=== PATIENT | male | born 1980 | race Caucasian/White ===

== ENCOUNTER 2018-06-23 07:47 | Emergency (ER) | payer OTHER ==
--- OUTSIDE RECORDS SUMMARY | 2018-06-23 07:50 | XMS REPORT | Clinical Summary ---
:1980 Author Organization [facility] Address [address] [place] [address] Care Team Providers Name Role Phone Bruno Kothari MD Primary Care Provider Allergies Not on File Medications Not on file Active Problems Not on file Social History Tobacco Use Types Packs/Day Years Used Date Never Assessed Sex Assigned at Date Recorded Not on file Job Start Date Occupation Industry Not on file Not on file Not on file Travel History Travel Start Travel End No recent travel history available. Last Filed Vital Signs Not on file Plan of Treatment Health Maintenance Due Date Last Done Comments INFLUENZA VACCINE 12/09/2017 Results Not on fileafter 06/22/2017 Insurance Payer Benefit Plan / Group Subscriber ID Type Phone Address [employer]ET[employer] AET[employer] PPO OPEN CHOICE xxxxxxxxxx PPO Advance Directives Patient has advance care planning documents on file. For more information, please contact:[address] [address]
--- OUTSIDE RECORDS SUMMARY | 2018-06-23 07:50 | XMS REPORT | Continuity of Care Document ---
:1980 Author Organization Interface Problems Problem Status Onset Date Classification Date Comments Source Reported Medications Medication Details Route Status Patient Ordering Order Source Instructions Provider Date Allergies, Adverse Reactions, Alerts Substance Category Reaction Severity Reaction Status Date Comments Source type Reported Immunizations Immunization Date Given Site Status Last Updated Comments Source Results Order Results Value Reference Date Interpretation Comments Source Name Range Vital Signs Vital Sign Value Date Comments Source Encounters Location Location Encounter Encounter Reason Attending ADM DC Status Source Details Type Number For Provider Date Date Visit Outpatient [id number] YUNIEL 12/11 Active [facility] Outpatient [id number] YUNIEL 01/15 [facility] Outpatient [id number] YUNIEL 04/16 [facility] Outpatient [id number] YUNIEL 04/28 Active [facility] Outpatient [id number] YUNIEL 06/15 [facility] Outpatient [id number] YUNIEL 07/13 [facility] Procedures Procedure Code Date Perfomer Comments Source
[2018-06-23] MEDS ORDERED: PROMETHAZINE 25 MG/ML VIAL ONE (08:39)
[2018-06-23] MEDS ORDERED: NA CHLORIDE 0.9% 1,000 ML ONE (08:39)
[2018-06-23] MEDS ORDERED: PANTOPRAZOLE 40 MG INJ ONE (08:39)
--- NOTE | 2018-06-23 08:44 | RAD REPORT ---
EXAM DESCRIPTION: CT - Head C Spine Mpr Wo Con - 06/23/2018 8:25 am CLINICAL HISTORY: Headache. Migraine. Neck pain. Nausea COMPARISON: None. TECHNIQUE: Computed axial tomography of the head and cervical spine was obtained. Sagittal and coronal reconstruction was performed. All CT scans are performed using dose optimization technique as appropriate and may include automated exposure control or mA/KV adjustment according to patient size. FINDINGS: An intracranial bleed is not seen. The ventricles are normal in caliber. An extra-axial fl uid collection is not noted.Fluid within the visualized sinuses and mastoids is not seen A cervical fracture is not visualized. No dislocation is noted. Spinal stenosis is not noted IMPRESSION: No acute intracranial abnormality is seen. A cervical fracture is not visualized. Spinal stenosis is not seen. If the patient continues to have symptoms to suggest intracranial /spinal cord pathology then MRI would be recommended
[2018-06-23 08:58] LABS: Potassium 3.1 mmol/L (3.5-5.1)
[2018-06-23 09:03] LABS: Absolute Lymphocytes (CBC) 5.2 K/uL (0.7-4.9); Absolute Monocytes 0.7 K/uL (0.1-1.3); Absolute Neutrophil 9.5 K/uL (1.8-8.0); Basophils % 0.5 % (0-1.3); Eosinophils % 1.6 % (0-4.4); Hematocrit 48.2 % (39.6-49.0); MPV 6.7 fL (7.6-11.3); Monocytes % 4.7 % (3.3-12.3)
[2018-06-23] MEDS ORDERED: FENTANYL CITR 100 MCG/2 ML ONE (09:17)
[2018-06-23] MEDS ORDERED: METHYLPRED NA SUC IV ONE (10:00)
[2018-06-23] MEDS ORDERED: NA CHLORIDE 0.9% IV ONE (10:00)
--- NOTE | 2018-06-23 13:55 | EDPHYS ---
Physician Documentation [facility] Name: Alex Ferrer Age: 37 yrs Sex: Male : 1980 Arrival Date: 06/23/2018 Time: 07:50 Bed 19 Private MD: CHANTE GUARDADO ED Physician Brendan Cheung HPI: 06/23 08:31 This 37 yrs old Male presents to ER via Ambulatory with complaints of snw Migraine. 08:31 The patient complains of pain to the right baptist. The patient describes the headache snw as constant, unrelenting. Onset: The symptoms/episode began/occurred gradually, 3 week(s) ago, and became persistent. Associated signs and symptoms: Pertinent positives: nausea, Photophobia. Severity of symptoms: At its worst the pain was moderate. Headache History: The patient has had previous headaches and this one is similar to previous episodes. The symptoms are alleviated by nothing. The patient has experienced similar episodes in the past, chronically. saw Dr. Hernandes last week. Burst of steroids added to pt's triptan. No relief. Pt states he has hx of migraine. They used to last x 3 weeks until he started taking triptan medication and the headache was shortened to 2-3 days. This episode, pt continues with pain to right baptist.. Historical: - Allergies: 08:22 No Known Allergies; hb - Home Meds: 08:22 Relpax oral oral [Active]; hb - PMHx: 08:22 Migraines; hb - PSHx: 08:22 None; hb - Immunization history:: Adult Immunizations up to date. - Social history:: Smoking status: Patient/guardian denies using tobacco. - Ebola Screening: : No symptoms or risks identified at this time. ROS: 08:30 Constitutional: Negative for fever, chills, and weight loss, Eyes: Negative for injury, snw pain, redness, and discharge, ENT: Negative for injury, pain, and discharge, Neck: Negative for injury, pain, and swelling, Cardiovascular: Negative for chest pain, palpitations, and edema, Respiratory: Negative for shortness of breath, cough, wheezing, and pleuritic chest pain, Abdomen/GI: Negative for abdominal pain, nausea, vomiting, diarrhea, and constipation, Back: Negative for injury and pain, : Negative for injury, bleeding, discharge, and swelling, MS/Extremity: Negative for injury and deformity, Skin: Negative for injury, rash, and discoloration. 08:30 Neuro: Positive for headache, of the right baptist. Exam: 08:30 Constitutional: This is a well developed, well nourished patient who is awake, alert, snw and in no acute distress. Head/Face: Normocephalic, atraumatic. Eyes: Pupils equal round and reactive to light, extra-ocular motions intact. Lids and lashes normal. Conjunctiva and sclera are non-icteric and not injected. Cornea within normal limits. Periorbital areas with no swelling, redness, or edema. ENT: Nares patent. No nasal discharge, no septal abnormalities noted. Tympanic membranes are normal and external auditory canals are clear. Oropharynx with no redness, swelling, or masses, exudates, or evidence of obstruction, uvula midline. Mucous membranes moist. Neck: Trachea midline, no thyromegaly or masses palpated, and no cervical lymphadenopathy. Supple, full range of motion without nuchal rigidity, or vertebral point tenderness. No Meningismus. Chest/axilla: Normal chest wall appearance and motion. Nontender with no deformity. No lesions are appreciated. Cardiovascular: Regular rate and rhythm with a normal S1 and S2. No gallops, murmurs, or rubs. Normal PMI, no JVD. No pulse deficits. Respiratory: Lungs have equal breath sounds bilaterally, clear to auscultation and percussion. No rales, rhonchi or wheezes noted. No increased work of breathing, no retractions or nasal flaring. Abdomen/GI: Soft, non-tender, with normal bowel sounds. No distension or tympany. No guarding or rebound. No evidence of tenderness throughout. Back: No spinal tenderness. No costovertebral tenderness. Full range of motion. Skin: Warm, dry with normal turgor. Normal color with no rashes, no lesions, and no evidence of cellulitis. MS/ Extremity: Pulses equal, no cyanosis. Neurovascular intact. Full, normal range of motion. Neuro: Awake and alert, GCS 15, oriented to person, place, time, and situation. Cranial nerves II-XII grossly intact. Motor strength 5/5 in all extremities. Sensory grossly intact. Cerebellar exam normal. Normal gait. Psych: Awake, alert, with orientation to person, place and time. Behavior, mood, and affect are within normal limits. Vital Signs: 08:11 BP 143 / 104; Pulse 74; Resp 16; Temp 97.8; Pulse Ox 100% on R/A; Pain 10/10; hb 11:05 BP 115 / 83; Pulse 73; Resp 18; Pulse Ox 95% on R/A; aj1 13:09 BP 113 / 81; Pulse 78; Resp 18; Pulse Ox 95% on R/A; aj1 14:54 BP 101 / 56; Pulse 68; Resp 18; Pulse Ox 96% on R/A; aj1 [place] Coma Score: 13:05 Eye Response: spontaneous(4). Verbal Response: oriented(5). Motor Response: obeys snw commands(6). Total: 15. MDM: 08:10 Patient medically screened. snw 13:05 Data reviewed: vital signs, nurses notes. Data interpreted: Pulse oximetry: on room air snw is 95 %. Interpretation: normal. Counseling: I had a detailed discussion with the patient and/or guardian regarding: the historical points, exam findings, and any diagnostic results supporting the discharge/admit diagnosis, the presence of at least one elevated blood pressure reading (>120/80) during this emergency department visit, lab results, radiology results, the need for outpatient follow up. Response to treatment: the patient's symptoms have markedly improved after treatment, patient is well hydrated. Awaiting: IVF with solu-medrol to fininsh infusing. Special discussion: I have referred the patient to see his PCP for further evaluation of high blood pressure. Based on the history and exam findings, there is no indication for further emergent testing or inpatient evaluation. I discussed with the patient/guardian the need to see the neurologist for further evaluation of the symptoms. I discussed with the patient/guardian the need to see the primary care provider for further evaluation of the symptoms. ED course: sleeping in NAD. 06/23 08:13 Order name: CBC with Diff; Complete Time: 09:13 snw 06/23 08:13 Order name: Chem 7; Complete Time: 09:13 snw 06/23 08:13 Order name: CT Head C Spine; Complete Time: 08:47 snw 06/23 08:13 Order name: Blood Culture* snw 06/23 08:13 Order name: Oxygen: NRB at 15l/min x 10-15 min; Complete Time: 08:44 snw 06/23 08:53 Order name: Misc. Order: Solu-medrol 1gm/1L 0.9NS to run over 1-2 hours; Complete Time: snw 09:59 Administered Medications: 08:43 Drug: NS 0.9% 1000 ml Route: IV; Rate: 1 bolus; Site: right antecubital; hb 09:30 Follow up: Response: No adverse reaction; IV Status: Completed infusion hb 08:43 Drug: Phenergan 12.5 mg Route: IVP; Site: right antecubital; hb 09:16 Follow up: Response: No adverse reaction hb 08:43 Drug: ProTONIX 40 mg Route: IVP; Site: right antecubital; hb 09:16 Follow up: Response: No adverse reaction hb 09:04 Drug: fentaNYL (PF) 25 mcg Route: IVP; Site: right antecubital; hb 09:59 Follow up: Response: No adverse reaction; Pain is decreased hb 14:53 Drug: Potassium Effervescent Tablet 50 mEq Route: PO; aj1 14:53 Follow up: Response: No adverse reaction aj1 Disposition: 18:55 Co-signature as Attending Physician, Brendan Cheung MD. rn Disposition: 06/23/18 13:54 Discharged to Home. Impression: Migraine, Hypokalemia. - Condition is Stable. - Discharge Instructions: Potassium Content of Foods, Migraine Headache, Hypokalemia. - Prescriptions for Diclofenac Sodium 75 mg Oral Tablet Sustained Release - take 1 tablet by ORAL route 2 times per day; 30 tablet. orphenadrine citrate 100 mg Oral Tablet Sustained Release - take 1 tablet by ORAL route 2 times per day As needed; 20 tablet. - Work release form, Medication Reconciliation Form, Thank You Letter, Antibiotic Education, Prescription Opioid Use form. - Follow up: Girma Hernandes; When: 1 - 2 days; Reason: Recheck today's complaints, Continuance of care, Re-evaluation by your physician. Signatures: Dispatcher [employer] EDMS Yuliya Enriquez RN RN aj1 Karena Degroot, ICE PLANT OPERATOR-C ICE PLANT OPERATOR-Csnw Brendan Cheung MD MD rn Baxter, Heather, RN RN Corrections: (The following items were deleted from the chart) 14:34 13:54 06/23/2018 13:54 Discharged to Home. Impression: Migraine. Condition is Stable. snw Discharge Instructions: Migraine Headache. Prescriptions for Diclofenac Sodium 75 mg Oral Tablet Sustained Release - take 1 tablet by ORAL route 2 times per day; 30 tablet, orphenadrine citrate 100 mg Oral Tablet Sustained Release - take 1 tablet by ORAL route 2 times per day As needed; 20 tablet. and Forms are Work release form, Medication Reconciliation Form, Thank You Letter, Antibiotic Education, Prescription Opioid Use. Follow up: Girma Hernandes; When: 1 - 2 days; Reason: Recheck today's complaints, Continuance of care, Re-evaluation by your physician. snw 15:01 14:34 06/23/2018 13:54 Discharged to Home. Impression: Migraine; Hypokalemia. Condition aj1 is Stable. Discharge Instructions: Migraine Headache. Prescriptions for Diclofenac Sodium 75 mg Oral Tablet Sustained Release - take 1 tablet by ORAL route 2 times per day; 30 tablet, orphenadrine citrate 100 mg Oral Tablet Sustained Release - take 1 tablet by ORAL route 2 times per day As needed; 20 tablet. and Forms are Work release form, Medication Reconciliation Form, Thank You Letter, Antibiotic Education, Prescription Opioid Use. Follow up: Girma Hernandes; When: 1 - 2 days; Reason: Recheck today's complaints, Continuance of care, Re-evaluation by your physician. snw
--- NOTE | 2018-06-23 13:55 | ER ---
Nurse's Notes [facility] Name: Alex Ferrer Age: 37 yrs Sex: Male : 1980 Arrival Date: 06/23/2018 Time: 07:50 Bed 19 Private MD: CHANTE GUARDADO Diagnosis: Migraine;Hypokalemia Presentation: 06/23 08:11 Presenting complaint: Migraine x 3 weeks. + photosensitivity, + nausea. Hx of hb migraines. Transition of care: patient was not received from another setting of care. Onset of symptoms is unknown. Risk Assessment: Do you want to hurt yourself or someone else? Patient reports no desire to harm self or others. Initial Sepsis Screen: Does the patient meet any 2 criteria? No. Patient's initial sepsis screen is negative. Does the patient have a suspected source of infection? No. Patient's initial sepsis screen is negative. Care prior to arrival: None. 08:11 Method Of Arrival: Ambulatory hb 08:11 Acuity: JULI 3 hb Historical: - Allergies: 08:22 No Known Allergies; hb - Home Meds: 08:22 Relpax oral oral [Active]; hb - PMHx: 08:22 Migraines; hb - PSHx: 08:22 None; hb - Immunization history:: Adult Immunizations up to date. - Social history:: Smoking status: Patient/guardian denies using tobacco. - Ebola Screening: : No symptoms or risks identified at this time. Screenin:44 Abuse screen: Denies threats or abuse. Denies injuries from another. Nutritional hb screening: No deficits noted. Tuberculosis screening: No symptoms or risk factors identified. Fall Risk None identified. Assessment: 08:20 General: Appears in no apparent distress. uncomfortable, Behavior is calm, cooperative. hb Pain: Pain currently is 8 out of 10 on a pain scale. Neuro: Level of Consciousness is awake, alert, obeys commands, Oriented to person, place, time, situation. Cardiovascular: Heart tones S1 S2 present Capillary refill < 3 seconds Patient's skin is warm and dry. Respiratory: Airway is patent Trachea midline Respiratory effort is even, unlabored, Respiratory pattern is regular, symmetrical, Breath sounds are clear bilaterally. GI: Reports nausea. : No signs and/or symptoms were reported regarding the genitourinary system. EENT: No signs and/or symptoms were reported regarding the EENT system. Derm: Skin is intact, is healthy with good turgor, Skin is pink, warm \T\ dry. Musculoskeletal: No signs and/or symptoms reported regarding the musculoskeletal system. 09:00 Reassessment: Patient appears in no apparent distress at this time. Patient and/or hb family updated on plan of care and expected duration. Pain level reassessed. Patient is alert, oriented x 3, equal unlabored respirations, skin warm/dry/pink. 10:00 Reassessment: Patient and/or family updated on plan of care and expected duration. Pain aj1 level reassessed. General: Appears in no apparent distress. uncomfortable, Behavior is calm, cooperative, appropriate for age. Neuro: Level of Consciousness is awake, alert, obeys commands. Cardiovascular: Patient's skin is warm and dry. Respiratory: Airway is patent Respiratory effort is even, unlabored, Respiratory pattern is regular, symmetrical. Derm: Skin is pink, warm \T\ dry. normal. Musculoskeletal: No signs and/or symptoms reported regarding the musculoskeletal system. Circulation, motion, and sensation intact. 11:10 Reassessment: Patient appears in no apparent distress at this time. No changes from aj1 previously documented assessment. Patient and/or family updated on plan of care and expected duration. Pain level reassessed. Patient is alert, oriented x 3, equal unlabored respirations, skin warm/dry/pink. 12:20 Reassessment: Patient appears in no apparent distress at this time. No changes from aj1 previously documented assessment. Patient and/or family updated on plan of care and expected duration. Pain level reassessed. Patient is alert, oriented x 3, equal unlabored respirations, skin warm/dry/pink. 13:40 Reassessment: Patient appears in no apparent distress at this time. Patient and/or aj1 family updated on plan of care and expected duration. Pain level reassessed. Patient is alert, oriented x 3, equal unlabored respirations, skin warm/dry/pink. Patient states that his pain remains unchanged. 14:53 Reassessment: Patient appears in no apparent distress at this time. No changes from aj1 previously documented assessment. Patient and/or family updated on plan of care and expected duration. Pain level reassessed. Patient is alert, oriented x 3, equal unlabored respirations, skin warm/dry/pink. Vital Signs: 08:11 BP 143 / 104; Pulse 74; Resp 16; Temp 97.8; Pulse Ox 100% on R/A; Pain 10/10; hb 11:05 BP 115 / 83; Pulse 73; Resp 18; Pulse Ox 95% on R/A; aj1 13:09 BP 113 / 81; Pulse 78; Resp 18; Pulse Ox 95% on R/A; aj1 14:54 BP 101 / 56; Pulse 68; Resp 18; Pulse Ox 96% on R/A; aj1 [place] Coma Score: 13:05 Eye Response: spontaneous(4). Verbal Response: oriented(5). Motor Response: obeys snw commands(6). Total: 15. ED Course: 07:50 Patient arrived in ED. sb2 07:50 CHANTE GUARDADO is Private Physician. sb2 07:59 aKrena Degroot FNP-C is [facility]. snw 07:59 Brendan Cheung MD is Attending Physician. snw 08:11 Shanta Hearn, LASHA is Primary Nurse. hb 08:12 Triage completed. hb 08:12 Arm band placed on. hb 08:20 Patient has correct armband on for positive identification. Bed in low position. Call hb light in reach. Side rails up X 1. 08:27 CT Head C Spine In Process Unspecified. EDMS 08:30 Inserted saline lock: 20 gauge in right antecubital area, using aseptic technique. hb Blood collected. 13:54 Girma Hernandes MD is Referral Physician. snw 14:54 No provider procedures requiring assistance completed. IV discontinued, intact, aj1 bleeding controlled, No redness/swelling at site. Pressure dressing applied. Administered Medications: 08:43 Drug: NS 0.9% 1000 ml Route: IV; Rate: 1 bolus; Site: right antecubital; hb 09:30 Follow up: Response: No adverse reaction; IV Status: Completed infusion hb 08:43 Drug: Phenergan 12.5 mg Route: IVP; Site: right antecubital; hb 09:16 Follow up: Response: No adverse reaction hb 08:43 Drug: ProTONIX 40 mg Route: IVP; Site: right antecubital; hb 09:16 Follow up: Response: No adverse reaction hb 09:04 Drug: fentaNYL (PF) 25 mcg Route: IVP; Site: right antecubital; hb 09:59 Follow up: Response: No adverse reaction; Pain is decreased hb 14:53 Drug: Potassium Effervescent Tablet 50 mEq Route: PO; aj1 14:53 Follow up: Response: No adverse reaction aj1 Outcome: 13:54 Discharge ordered by MD. cancino 14:54 Discharged to home ambulatory, with family. aj1 14:54 Condition: good 14:54 Discharge instructions given to patient, family, Instructed on discharge instructions, follow up and referral plans. medication usage, Demonstrated understanding of instructions, follow-up care, medications, Prescriptions given X 2. 15:01 Patient left the ED. aj1 Signatures: Dispatcher [employer] EDYuliya Orozco RN RN aj1 Karena Degroot, ACCELERATOR TECHNICIAN-C ACCELERATOR TECHNICIAN-Alvarow Shanta Hearn RN RN Minerva Owens sb2
[2018-06-23] MEDS ORDERED: POTASSIUM 25 MEQ EFFERV TAB ONE (14:49)
== END 2018-06-23 15:01 | disposition home or self-care (01) ==
LOC: ER 07:47
DX: G43.909 Migraine, unspecified, not intractable, without status migrainosus (principal); E87.6 Hypokalemia
CPT/HCPCS: 36415; 70450; 72125; 80048; 85025; 87040; 96361; 96374; 96375; 99284; C9113; J2550; J2930; J3010; J7030

== ENCOUNTER 2018-11-19 00:53 | Emergency (ER) | payer BC, OTHER ==
--- OUTSIDE RECORDS SUMMARY | 2018-11-19 00:54 | XMS REPORT | Clinical Summary ---
:1980 Author Organization [facility] Address [address] [place] [address] Care Team Providers Name Role Phone Bruno [...] Due Date Last Done Comments INFLUENZA VACCINE 12/09/2018 Results Not on fileafter 11/18/2017 Advance Directives Patient has advance care planning documents on file. For more information, please contact:[address] [address]
--- OUTSIDE RECORDS SUMMARY | 2018-11-19 00:55 | XMS REPORT | Summary of Care ---
:1980 Author Organization [facility] Address [address] [place] [address]- Encounter [facility] Irma(JOHANA) [id number] Date(s): 04/16/18 - 04/16/18 [facility] [address] [place] [address]- [phone] Discharge Disposition: Home or Self Care Attending Physician: Girma Hernandes MD Referring Physician: Girma Hernandes MD Vital Signs Most recent to oldest [Reference Range]: 1 Height 175.26 cm (04/16/18 3:35 PM) Blood Pressure [90-140/60-90 mmHg] 117/86 mmHg (04/16/18 3:35 PM) Peripheral Pulse Rate [60-100 bpm] 109 bpm *HI* (04/16/18 3:35 PM) Weight 78.636 kg (04/16/18 3:35 PM) Body Mass Index 25.6 m2 (04/16/18 3:35 PM) Problem List Condition Effective Dates Status Health Status Informant Migraines(Confirmed) Active Pain(Confirmed)1 Resolved Paresthesias(Confirmed) Active Tinnitus(Confirmed) Active 1constant pain in various areas Allergies, Adverse Reactions, Alerts No Known Medication Allergies Medications Medrol Dosepak 4 mg oral tablet See Instructions, PO, Take by mouth as directed on label., # 1 Pack, 0 Refill(s) , Pharmacy: [id number] Start Date: 04/16/18 Stop Date: 04/28/18 Status: DiscontinuedTrokendi XR 100 mg oral capsule, extended release 100 mg=1 cap, PO, Daily, # 30 cap, 3 Refill(s), Pharmacy: [id number] Start Date: 04/16/18 Stop Date: 08/14/18 Status: Ordered Results Most recent to oldest [Reference Range]: 1 eGFR NON-AFR. TRINIDADIAN [> OR=60 mL/min/1.73m2] 88 mL/min/1.73m2 *N* (05/08/18 8:39 AM) eGFR [> OR=60 mL/min/1.73m2] 102 mL/min/1.73m2 *N* (05/08/18 8:39 AM) A/G Ratio [1.0-2.5 (CALC)] 1.6 (CALC) *N* (05/08/18 8:39 AM) Albumin Lvl [3.6-5.1 g/dL] 4.4 g/dL *N* (05/08/18 8:39 AM) Alk Phos [40-115 unit/L] 75 unit/L *N* (05/08/18 8:39 AM) ALT [9-46 unit/L] 23 unit/L 1 *N* (05/08/18 8:39 AM) AST [10-40 unit/L] 11 unit/L *N* (05/08/18 8:39 AM) B/C Ratio [6-22] NOT APPLICABLE (05/08/18 8:39 AM) BUN [7-25 mg/dL] 25 mg/dL *N* (05/08/18 8:39 AM) Calcium Lvl [8.6-10.3 mg/dL] 9.3 mg/dL *N* (05/08/18 8:39 AM) Chloride Lvl [98-110 mMol/L] 104 mMol/L *N* (05/08/18 8:39 AM) CO2 [20-32 mMol/L] 25 mMol/L *N* (05/08/18 8:39 AM) Creatinine Lvl [0.60-1.35 mg/dL] 1.07 mg/dL *N* (05/08/18 8:39 AM) Globulin [1.9-3.7 g/dL] 2.7 g/dL *N* (05/08/18 8:39 AM) Glucose Lvl [65-99 mg/dL] 109 mg/dL 2 *HI* (12/29/18 8:39 AM) Potassium Lvl [3.5-5.3 mMol/L] 4.1 mMol/L *N* (05/08/18 8:39 AM) Sodium Lvl [135-146 mMol/L] 138 mMol/L *N* (05/08/18 8:39 AM) Total Protein [6.1-8.1 g/dL] 7.1 g/dL *N* (05/08/18 8:39 AM) Bili Total [0.2-1.2 mg/dL] 0.3 mg/dL *N* (05/08/18 8:39 AM) 1Result Comment: FASTING:YES FASTING: [id number] Comment: Fasting reference interval For someone without known diabetes, a glucose value between 100 and 125 mg/dL is consistent with prediabetes and should be confirmed with a follow-up test. Lab [facility] performed by: [facility] [address] [place] [address] Deborah Ramos Immunizations No data available for this section Procedures No data available for this section Social History Social History Type Response Employment/School Status: Employed. Alcohol Current, Frequency: 1-2 times per week. Smoking Status Current some day smoker; Type: Cigars; Exposure to Tobacco Smoke Unable to obtain; Cigarette Smoking Last 365 Days No; Reg Smoking Cessation Counseling No entered on: 06/15/18 Assessment and Plan No data available for this section
--- OUTSIDE RECORDS SUMMARY | 2018-11-19 00:55 | XMS REPORT | Continuity of Care Document ---
:1980 Author Organization [facility] Care Team Providers Name Role Phone [facility] Unavailable Unavailable Problems Problem Status Onset Classification Date Comments Source Date Reported Migraines Active Problem 11/16/2018 [facility] Pain1 Resolved Problem 11/16/2018 constant [facility] pain in Neuro various areas Paresthesias Active Problem 11/16/2018 [facility] Tinnitus Active Problem 11/16/2018 [facility] Medications Medication Details Route Status Patient Ordering Order Source Instructions Provider Date {21 See No Longer 04/16/20 [facility] (Methylpredni Instruction Active 18 Neuro solone 4 MG s, PO, Take Oral Tablet by mouth as [Medrol]) } directed on Pack [Medrol label., # 1 Dosepak] Pack, 0 Refill(s), Pharmacy: [id number] 24 HR 100 mg=1 Active 04/16/20 [facility] topiramate cap, PO, 18 Neuro 100 MG Daily, # 30 Extended cap, 3 Release Refill(s), Capsule Pharmacy: [Yee] [facility] #[id number] Allergies, Adverse Reactions, Alerts Substance Category Reaction Severity Reaction Status Date Comments Source type Reported No Known Assertion Drug [facility] Medication allergy Neuro Allergies Immunizations No Data Provided for This Section Results Order Results Value Reference Date Interpretation Comments Source Name Range CHEM Alk Phos 75 40 - 115 05/08 [facility] /2017 Neuro CHEM Albumin Lvl 4.4 3.6 - 5.1 05/08 [facility] CHEM Globulin 2.7 1.9 - 3.7 05/08 [facility] CHEM A/G Ratio 1.6 1.0 - 2.5 05/08 [facility] /2017 Neuro CHEM Bili Total 0.3 0.2 - 1.2 05/08 [facility] CHEM ALANINE 23 9 - 46 05/08 Result [facility] AMINOTRANSFERASE Comment: Neuro FASTING:YES

F ASTING: YES CHEM ASPARTATE 11 10 - 40 05/08 [facility] TRANSAMINASE /2017 Neuro CHEM Glucose Lvl 109 65 - 99 05/08 Result [facility] PANEL Comment: Neuro
Fasting reference interval

For someone without known diabetes, a glucose value
b etween 100 and 125 mg/dL is consistent with<br/&gt ;prediabete s and should be confirmed with a
follo w-up test.

Lab test performed by:
[facility]
[address]
[place] [address]< br/>Deborah Ramos CHEM BUN 25 7 - 25 05/08 [facility] PANEL Neuro CHEM eGFR 102 > OR=60 05/08 [facility] PANEL HUNGARIAN mL/min/1. Neuro 3m2 CHEM B/C Ratio NOT 6 - 22 05/08 [facility] PANEL APPLICABLE Neuro CHEM Creatinine Lvl 1.07 0.60 - 05/08 [facility] PANEL 1.35 Neuro CHEM eGFR NON-AFR. 88 > OR=60 05/08 [facility] PANEL HUNGARIAN mL/min/1. Neuro 3m2 CHEM Sodium Lvl 138 135 - 146 05/08 [facility] PANEL Neuro CHEM Chloride Lvl 104 98 - 110 05/08 [facility] PANEL Neuro CHEM CO2 25 20 - 32 05/08 [facility] PANEL Neuro CHEM Potassium Lvl 4.1 3.5 - 5.3 05/08 [facility] PANEL Neuro CHEM Calcium Lvl 9.3 8.6 - 10.3 05/08 [facility] PANEL /2017 Neuro CHEM Total Protein 7.1 6.1 - 8.1 05/08 [facility] PANEL Neuro Pathology Reports No Data Provided for This Section Diagnostic Reports No Data Provided for This Section Consultation Notes No Data Provided for This Section Discharge Summaries No Data Provided for This Section History and Physicals No Data Provided for This Section Vital Signs Vital Sign Value Date Comments Source BMI Calculated 27.97 04/28/2018 [facility] Neuro Weight 85.909 04/28/2018 [facility] Neuro Height 175.26 cm 04/28/2018 [facility] Neuro Heart Rate 89 04/28/2018 [facility] Neuro Systolic (mm Hg) 124 04/28/2018 [facility] Diastolic (mm Hg) 81 04/28/2018 [facility] BMI Calculated 25.6 04/16/2018 [facility] Weight 78.636 04/16/2018 [facility] Height 175.26 cm 04/16/2018 [facility] Heart Rate 109 04/16/2018 [facility] Systolic (mm Hg) 117 04/16/2018 [facility] Diastolic (mm Hg) 86 04/16/2018 [facility] Encounters Location Location Encounter Encounter Reason Attending ADM DC Status Source Details Type Number For Provider Date Date Visit Outpatient [id number] YUNIEL 12/11 Active [facility] [place] Outpatient [id number] YUNIEL 01/15 Active [facility] [place] Outpatient [id number] YUNIEL 04/16 [facility] [place] [facility] Outpatient [id number] Yuniel 04/16 04/17 [facility] Out[facility] [id number] YUNIEL 04/28 Active [facility] [place] [facility] Outpatient [id number] Yuniel 04/28 04/29 [facility] Outpatient [id number] YUNIEL 06/15 Active [facility] [place] Outpatient [id number] YUNIEL 07/13 Active [facility] [place] Procedures No Data Provided for This Section Assessment and Plan No Data Provided for This Section Plan of Care No Data Provided for This Section Social History Social History Date Source Social History TypeResponse 12/11/2017 [facility] Employment/School Status: Employed. Alcohol Current, Frequency: 1-2 times per week. Smoking Status Current some day smoker; Type: Cigars; Exposure to Tobacco Smoke Unable to obtain; Cigarette Smoking Last 365 Days No; Reg Smoking Cessation Counseling No entered on: 06/15/18 Family History No Data Provided for This Section Advance Directives No Data Provided for This Section Functional Status No Data Provided for This Section
--- OUTSIDE RECORDS SUMMARY | 2018-11-19 00:55 | XMS REPORT | Summary of Care ---
:1980 Author Organization [facility] Neurology [place] Address [address] [place] [address]- Encounter [facility] Irma(JOHANA) [id number] Date(s): 04/28/18 - 04/28/18 [facility] [address] [place] [address]- [phone] Discharge Disposition: Home or Self Care Attending Physician: Girma Hernandes MD Referring Physician: Girma Hernandes MD Vital Signs Most recent to oldest [Reference Range]: 1 Height 175.26 cm (04/28/18 4:05 PM) Blood Pressure [90-140/60-90 mmHg] 124/81 mmHg (04/28/18 4:05 PM) Peripheral Pulse Rate [60-100 bpm] 89 bpm (04/28/18 4:05 PM) Weight 85.909 kg (04/28/18 4:05 PM) Body Mass Index 27.97 m2 (04/28/18 4:05 PM) Problem List Condition Effective Dates Status Health Status Informant Migraines(Confirmed) Active Pain(Confirmed)1 Resolved Paresthesias(Confirmed) Active Tinnitus(Confirmed) Active 1constant pain in various areas Allergies, Adverse Reactions, Alerts No Known Medication Allergies Medications No Known Medications Results No data available for this section Immunizations No data available for this section [...]
[2018-11-19] MEDS ORDERED: NA CHLORIDE 0.9% 1,000 ML ONE (01:40)
[2018-11-19] MEDS ORDERED: KETOROLAC 30 MG/ML INJ ONE (01:41)
[2018-11-19 01:56] LABS: Absolute Lymphocytes (CBC) 2.1 K/uL (0.7-4.9); Basophils % 0.6 % (0-1.3); Hematocrit 43.2 % (39.6-49.0); Lymphocytes % 17.1 % (15.3-44.8); MPV 7.4 fL (7.6-11.3); Monocytes % 4.4 % (3.3-12.3); RBC Red Blood Cell Count 4.92 M/uL (4.33-5.43)
[2018-11-19 02:02] LABS: Potassium 3.8 mmol/L (3.5-5.1)
[2018-11-19 02:12] LABS: Urine Bacteria <20 /HPF (NONE SEEN); Urine Culture Reflex Order NOT NEEDED
[2018-11-19 02:14] LABS: Urine Blood NEGATIVE (NEG); Urine Glucose NEGATIVE (NEG); Urine Protein 2+ (NEG); Urine Specific Gravity >1.030 (1.005-1.030); Urine pH 5.5 (5.0-7.0)
[2018-11-19] MEDS ORDERED: FENTANYL CITR 100 MCG/2 ML ONE (03:09)
--- NOTE | 2018-11-19 03:20 | EDPHYS ---
Physician Documentation [facility] Name: Alex Ferrer Age: 38 yrs Sex: Male : 1980 Arrival Date: 11/19/2018 Time: 00:54 Bed 28 Private MD: ED Physician Rex Sena HPI: 11/19 01:20 This 38 yrs old Male presents to ER via Ambulatory with complaints of Side gs Pain. 01:27 The patient complains of pain in the left low back. The pain radiates to the groin, gs left femoral area and left iliac crest. Onset: The symptoms/episode began/occurred today. Modifying factors: The symptoms are alleviated by nothing. the symptoms are aggravated by nothing. Associated signs and symptoms: Pertinent positives: nausea, vomiting. Severity of pain: At its worst the pain was severe in the emergency department the pain is unchanged. The patient has experienced similar episodes in the past, a few times, and the symptoms today are exactly the same. The patient has not recently seen a physician. Historical: - Allergies: 01:06 No Known Allergies; bb - Home Meds: 01:06 Fluoxetine Oral [Active]; Ambien Oral [Active]; bb - PMHx: 01:06 Migraines; Kidney stones; insomnia; Depression; bb - PSHx: 01:06 Kidney stents; Shoulder surgery; Right hand; bb - Immunization history:: Adult Immunizations up to date. - Social history:: Smoking status: Patient uses tobacco products, denies chronic smoking, but will smoke occasionally, Patient uses alcohol, but reports only rare drinking. Patient/guardian denies using street drugs. - Ebola Screening: : No symptoms or risks identified at this time. ROS: 01:27 All other systems are negative. gs Exam: 01:27 Head/Face: Normocephalic, atraumatic. Eyes: Pupils equal round and reactive to light, gs extra-ocular motions intact. Lids and lashes normal. Conjunctiva and sclera are non-icteric and not injected. Cornea within normal limits. Periorbital areas with no swelling, redness, or edema. ENT: Nares patent. No nasal discharge, no septal abnormalities noted. Tympanic membranes are normal and external auditory canals are clear. Oropharynx with no redness, swelling, or masses, exudates, or evidence of obstruction, uvula midline. Mucous membranes moist. Neck: Trachea midline, no thyromegaly or masses palpated, and no cervical lymphadenopathy. Supple, full range of motion without nuchal rigidity, or vertebral point tenderness. No Meningismus. Chest/axilla: Normal chest wall appearance and motion. Nontender with no deformity. No lesions are appreciated. Cardiovascular: Regular rate and rhythm with a normal S1 and S2. No gallops, murmurs, or rubs. Normal PMI, no JVD. No pulse deficits. Respiratory: Lungs have equal breath sounds bilaterally, clear to auscultation and percussion. No rales, rhonchi or wheezes noted. No increased work of breathing, no retractions or nasal flaring. Skin: Warm, dry with normal turgor. Normal color with no rashes, no lesions, and no evidence of cellulitis. MS/ Extremity: Pulses equal, no cyanosis. Neurovascular intact. Full, normal range of motion. Neuro: Awake and alert, GCS 15, oriented to person, place, time, and situation. Cranial nerves II-XII grossly intact. Motor strength 5/5 in all extremities. Sensory grossly intact. Cerebellar exam normal. Normal gait. 01:27 Constitutional: The patient appears alert, awake, pale, uncomfortable. 01:27 Abdomen/GI: Palpation: mild abdominal tenderness, in the left lower quadrant. 01:27 Back: CVA tenderness, that is mild, is noted on the left. 01:27 : Male external genitalia: normal. Vital Signs: 01:06 BP 142 / 99; Pulse 102; Resp 16 S; Temp 98.2(O); Pulse Ox 95% on R/A; Weight 81.65 kg bb (R); Height 5 ft. 9 in. (175.26 cm) (R); Pain 9/10; 02:00 BP 130 / 87; Resp 16; Pulse Ox 96% ; Pain 9/10; fu 03:00 BP 129 / 92; Pulse 96; Resp 14; Pulse Ox 93% on R/A; Pain 9/10; fu 01:06 Body Mass Index 26.58 (81.65 kg, 175.26 cm) MDM: 01:14 Patient medically screened. 03:18 Differential diagnosis: nephrolithiasis, pyelonephritis, UTI. Data reviewed: vital gs signs, nurses notes, lab test result(s), radiologic studies. Counseling: I had a detailed discussion with the patient and/or guardian regarding: the historical points, exam findings, and any diagnostic results supporting the discharge/admit diagnosis, lab results, radiology results, the need for outpatient follow up, a urologist. Response to treatment: the patient's symptoms have markedly improved after treatment, the patient's condition has returned to base line. 11/19 01:21 Order name: Basic Metabolic Panel; Complete Time: 02:32 11/19 01:21 Order name: CBC with Diff; Complete Time: 02:32 11/19 01:21 Order name: Lipase; Complete Time: 02:32 11/19 01:21 Order name: CT Stone Protocol 11/19 01:21 Order name: Urine Microscopic Only; Complete Time: 02:32 11/19 01:50 Order name: Urine Dipstick--Ancillary (enter results); Complete Time: 02:32 ar5 11/19 01:21 Order name: IV Saline Lock; Complete Time: 01:41 gs 11/19 01:21 Order name: Labs collected and sent; Complete Time: 01:50 11/19 01:21 Order name: Urine Dipstick-Ancillary (obtain specimen); Complete Time: 01:51 gs Administered Medications: 01:41 Drug: NS 0.9% 1000 ml Route: IV; Rate: 1 bolus; Site: right antecubital; fu 02:29 Follow up: Response: No adverse reaction fu 01:41 Drug: TORadol - Ketorolac 15 mg Route: IVP; Site: right antecubital; fu 02:50 Follow up: Response: Pain is unchanged, physician notified fu 03:00 Drug: fentaNYL (PF) 75 mcg Route: IVP; Site: right antecubital; fu 03:25 Follow up: Response: Pain is decreased fu 03:25 Drug: [place] 10 mg-325 mg 1 tabs Route: PO; fu 03:50 Follow up: Response: No adverse reaction fu Disposition: 11/19/18 03:19 Discharged to Home. Impression: Hydronephrosis with renal and ureteral calculous obstruction. - Condition is Stable. - Discharge Instructions: Kidney Stones, Hydronephrosis. - Prescriptions for Tylenol- Codeine #4 300-60 mg Oral Tablet - take 1 tablet by ORAL route every 6 hours As needed; 12 tablet. - Medication Reconciliation Form, Thank You Letter, Antibiotic Education, Prescription Opioid Use form. - Follow up: Mariama Xavier MD; When: 1 - 2 days; Reason: Re-evaluation by your physician. Signatures: Dispatcher [employer] Elizabet Abraham RN RN Rex Mishra MD MD gs Umadhay, Felix, RN RN fu Corrections: (The following items were deleted from the chart) 03:55 03:19 11/19/2018 03:19 Discharged to Home. Impression: Hydronephrosis with renal and fu ureteral calculous obstruction. Condition is Stable. Forms are Medication Reconciliation Form, Thank You Letter, Antibiotic Education, Prescription Opioid Use. Follow up: Mariama Xavier; When: 1 - 2 days; Reason: Re-evaluation by your physician. gs
--- NOTE | 2018-11-19 03:20 | ER ---
Nurse's Notes [facility] Name: Alex Ferrer Age: 38 yrs Sex: Male : 1980 Arrival Date: 11/19/2018 Time: 00:54 Bed 28 Private MD: Diagnosis: Hydronephrosis with renal and ureteral calculous obstruction Presentation: 11/19 01:03 Presenting complaint: Patient states: he is having left flank pain since approx 2100 bb tonight the pain is sharp and constant, denies dysuria, pt has hx of kidney stones in the past. Transition of care: patient was not received from another setting of care. Onset of symptoms was November 18, 2018 at 21:00. Risk Assessment: Do you want to hurt yourself or someone else? Patient reports no desire to harm self or others. Initial Sepsis Screen: Does the patient meet any 2 criteria? No. Patient's initial sepsis screen is negative. Does the patient have a suspected source of infection? No. Patient's initial sepsis screen is negative. Care prior to arrival: None. 01:03 Method Of Arrival: Ambulatory bb 01:03 Acuity: JULI 3 bb Historical: - Allergies: 01:06 No Known Allergies; bb - Home Meds: 01:06 Fluoxetine Oral [Active]; Ambien Oral [Active]; bb - PMHx: 01:06 Migraines; Kidney stones; insomnia; Depression; bb - PSHx: 01:06 Kidney stents; Shoulder surgery; Right hand; bb - Immunization history:: Adult Immunizations up to date. - Social history:: Smoking status: Patient uses tobacco products, denies chronic smoking, but will smoke occasionally, Patient uses alcohol, but reports only rare drinking. Patient/guardian denies using street drugs. - Ebola Screening: : No symptoms or risks identified at this time. Screenin:15 Abuse screen: Denies threats or abuse. Nutritional screening: No deficits noted. fu Tuberculosis screening: No symptoms or risk factors identified. Fall Risk None identified. Assessment: 01:09 General: Appears uncomfortable, Behavior is calm, cooperative, appropriate for age, fu Denies fever, fatigue, chills. Pain: Complains of pain in left side pain Pain does not radiate. Pain currently is 9 out of 10 on a pain scale. Quality of pain is described as sharp, Pain began around 2100 last night. Is continuous. Neuro: Level of Consciousness is awake, alert, obeys commands, Oriented to person, place, time, situation, Pad Cutter are equal bilaterally Moves all extremities. Full function Gait is steady, Speech is normal, Facial symmetry appears normal. Cardiovascular: Denies chest pain, Capillary refill is > 3 seconds fingers toes. Respiratory: Airway is patent Breath sounds are clear bilaterally. Denies cough, shortness of breath. GI: Reports nausea, vomiting, Patient currently denies diarrhea. : Reports dark yellow urine Denies burning with urination. EENT:. Derm: No signs and/or symptoms reported regarding the dermatologic system. Musculoskeletal: No signs and/or symptoms reported regarding the musculoskeletal system. 02:00 Reassessment: Patient is alert, oriented x 3, equal unlabored respirations, skin fu warm/dry/pink. General: Appears comfortable, Behavior is calm, cooperative, appropriate for age. Pain: Complains of pain in left side Pain currently is 8 out of 10 on a pain scale. 03:00 Reassessment: Patient is alert, oriented x 3, equal unlabored respirations, skin fu warm/dry/pink. Pain: Complains of pain in left side Pain currently is 2 out of 10 on a pain scale. Vital Signs: 01:06 BP 142 / 99; Pulse 102; Resp 16 S; Temp 98.2(O); Pulse Ox 95% on R/A; Weight 81.65 kg bb (R); Height 5 ft. 9 in. (175.26 cm) (R); Pain 9/10; 02:00 BP 130 / 87; Resp 16; Pulse Ox 96% ; Pain 9/10; fu 03:00 BP 129 / 92; Pulse 96; Resp 14; Pulse Ox 93% on R/A; Pain 9/10; fu 01:06 Body Mass Index 26.58 (81.65 kg, 175.26 cm) bb ED Course: 00:54 Patient arrived in ED. ds1 00:59 Clayton Schuler, LASHA is Primary Nurse. fu 01:03 Rex Sena MD is Attending Physician. gs 01:04 Triage completed. bb 01:06 Arm band placed on Patient placed in an exam room, on a stretcher, on pulse oximetry. bb Family accompanied patient. 01:15 Patient has correct armband on for positive identification. Bed in low position. Call fu light in reach. Side rails up X 1. 01:16 ED physician to see patient. fu 01:46 Initial lab(s) drawn, by me, sent to lab. Inserted saline lock: 20 gauge in right fu antecubital area, using aseptic technique. 01:51 CT completed. Patient tolerated procedure well. Patient moved to CT via stretcher. Patient moved back from CT. 02:00 CT Stone Protocol In Process Unspecified. EDMS 03:10 No provider procedures requiring assistance completed. fu 03:19 Mariama Xavier MD is Referral Physician. gs 03:45 IV discontinued, intact, bleeding controlled, No redness/swelling at site. Pressure fu dressing applied. Administered Medications: 01:41 Drug: NS 0.9% 1000 ml Route: IV; Rate: 1 bolus; Site: right antecubital; fu 02:29 Follow up: Response: No adverse reaction fu 01:41 Drug: TORadol - Ketorolac 15 mg Route: IVP; Site: right antecubital; fu 02:50 Follow up: Response: Pain is unchanged, physician notified fu 03:00 Drug: fentaNYL (PF) 75 mcg Route: IVP; Site: right antecubital; fu 03:25 Follow up: Response: Pain is decreased fu 03:25 Drug: [place] 10 mg-325 mg 1 tabs Route: PO; fu 03:50 Follow up: Response: No adverse reaction fu Outcome: 03:19 Discharge ordered by . 03:45 Discharged to home ambulatory, with family. fu 03:45 Condition: improved 03:45 Discharge instructions given to patient, Instructed on discharge instructions, follow up and referral plans. Demonstrated understanding of instructions, medications, Prescriptions given X 1. 03:55 Patient left the ED. fu Signatures: Dispatcher [employer] Devin Curran Demi ds1 Elizabet Correa RN RN bb Starr, Gregory, MD MD Clayton Schuler RN RN fu
[2018-11-19] MEDS ORDERED: HYDROCODONE/APAP 10/325 TAB ONE (03:37)
--- NOTE | 2018-11-19 12:06 | RAD REPORT ---
EXAM DESCRIPTION: CT Abdomen and Pelvis Without Intravenous Contrast CLINICAL HISTORY: The patient is 38 years old and is Male; FLANK PAIN TECHNIQUE: Axial computed tomography images of the abdomen and pelvis without intravenous contrast. Sagittal and coronal reformatted images were created and reviewed. This CT exam was performed usi ng one or more of the following dose reduction techniques: automated exposure control, adjustment o f the mA and/or kV according to patient size, and/or use of iterative reconstruction technique. COMPARISON: CT abdomen and pelvis without contrast dated 05/14/2013. FINDINGS: LUNG BASES: Right lung base atelectasis. HEART: Visualized heart is within normal limits. ABDOMEN: LIVER: Diffuse hepatic steatosis. GALLBLADDER AND BILE DUCTS: Unremarkable. No calcified stones. No ductal dilation. PANCREAS: Unremarkable. No ductal dilation. SPLEEN: Unremarkable. No splenomegaly. ADRENALS: Unremarkable. No mass. KIDNEYS AND URETERS: 3 mm stone in the proximal left ureter with moderate hydronephrosis and proxi mal hydroureter. This is grossly unchanged from prior exam. Mild left perinephric stranding and enlar gement of the left kidney, worsened from prior exam. Additional stone is seen in the inferior pole of the left kidney measuring 7 x 3 mm, new from prior exam. STOMACH AND BOWEL: Unremarkable. No obstruction. No mucosal thickening. PELVIS: APPENDIX: The appendix is seen and is within normal limits. BLADDER: Bladder is decompressed. No stones. REPRODUCTIVE: Unremarkable as visualized. ABDOMEN and PELVIS: INTRAPERITONEAL SPACE: Unremarkable. No free air. No significant fluid collection. BONES/JOINTS: No acute fracture. No dislocation. SOFT TISSUES: Unremarkable. VASCULATURE: Unremarkable. No abdominal aortic aneurysm. LYMPH NODES: Unremarkable. No enlarged lymph nodes. IMPRESSION: 1. Obstructive 3 mm left proximal ureteral stone with moderate hydronephrosis/hydroure ter as well as asymmetric enlargement of the left kidney and perinephric stranding. Superimposed infe ctious process cannot be entirely excluded. Correlate with urinalysis. 2. Diffuse hepatic steatosis. Electronically signed by: Omi Quiñones DO 11/19/2018 2:13 AM CDT Due to temporary technical issues with the PACS/Fluency reporting system, reports are being signed by the in house radiologist as a courtesy to ensure prompt reporting. The interpreting radiologist is sarah lemaly responsible for the content of the report.
== END 2018-11-19 03:55 | disposition home or self-care (01) ==
LOC: ER 00:53
DX: N13.2 Hydronephrosis with renal and ureteral calculous obstruction (principal); G47.00 Insomnia, unspecified; F32.9 Major depressive disorder, single episode, unspecified
CPT/HCPCS: 36415; 74176; 76377; 80048; 81003; 81015; 83690; 85025; 96374; 96375; 99284; J3010; J7030

== ENCOUNTER 2019-03-16 12:00 | Emergency (ER) | payer BC ==
[2019-03-16] MEDS ORDERED: dexAMETHasone 10 MG/ML VIAL ONE (13:14)
[2019-03-16] MEDS ORDERED: KETOROLAC 30 MG/ML INJ ONE (13:14)
[2019-03-16] MEDS ORDERED: DIPHENHYDRAMINE 50 MG/ML VIAL ONE (13:14)
[2019-03-16] MEDS ORDERED: METOCLOPRAMIDE 10 MG/2mL INJ ONE (13:14)
[2019-03-16] MEDS ORDERED: NA CHLORIDE 0.9% 1,000 ML ONE (13:15)
[2019-03-16] MEDS ORDERED: ONDANSETRON 4 MG/2 ML VIAL ONE (13:15)
[2019-03-16 13:24] LABS: Absolute Lymphocytes (CBC) 2.5 K/uL (0.7-4.9); Basophils % 1.2 % (0-1.3); Hematocrit 43.7 % (39.6-49.0); Lymphocytes % 33.1 % (15.3-44.8); RBC Red Blood Cell Count 4.99 M/uL (4.33-5.43)
[2019-03-16 14:02] LABS: Magnesium 2.2 mg/dL (1.8-2.4); Potassium 4.3 mmol/L (3.5-5.1)
--- NOTE | 2019-03-16 14:34 | EDPHYS ---
Physician Documentation [facility] Name: Alex Ferrer Age: 38 yrs Sex: Male : 1980 Arrival Date: 03/16/2019 Time: 12:01 Bed 15 Private MD: ED Physician Jackson Marquez HPI: 03/16 13:00 This 38 yrs old Male presents to ER via Ambulatory with complaints of cp Headache. 13:00 The patient complains of pain to the top of head and forehead. cp 13:00 The patient describes the headache as throbbing, shooting. Onset: The symptoms/episode cp began/occurred 3 day(s) ago. Associated signs and symptoms: Pertinent positives: nausea, Photophobia vomiting, Pertinent negatives: altered mental status, fever, neck stiffness, sinus congestion, sinus tenderness, vision loss, weakness. Severity of symptoms: in the emergency department the pain a " 9" out of "10". Headache History: The patient has had previous headaches and this one is similar to previous episodes. Historical: - Allergies: 12:19 No Known Allergies; aa5 - PMHx: 12:19 Depression; insomnia; Kidney stones; Migraines; aa5 - PSHx: 12:19 Kidney stents; Shoulder surgery; Right hand; aa5 - Immunization history:: Adult Immunizations unknown. - Social history:: Smoking status: Patient/guardian denies using tobacco. - Ebola Screening: : No symptoms or risks identified at this time. ROS: 13:10 Constitutional: Negative for body aches, chills, fever, poor PO intake. cp 13:10 Eyes: Positive for photophobia, Negative for discharge, redness. cp 13:10 ENT: Negative for drainage from ear(s), ear pain, sore throat, difficulty swallowing, difficulty handling secretions. 13:10 Neck: Negative for pain with movement, pain at rest, stiffness, swollen nodes, tenderness. 13:10 Cardiovascular: Negative for chest pain, palpitations. 13:10 Respiratory: Negative for cough, shortness of breath, wheezing. 13:10 Abdomen/GI: Positive for nausea and vomiting, Negative for abdominal pain, diarrhea, constipation. 13:10 Skin: Negative for rash. 13:10 Neuro: Positive for headache, Negative for altered mental status, numbness, tingling, weakness. 13:10 All other systems are negative. Exam: 13:20 Head/Face: Normocephalic, atraumatic. Eyes: Pupils equal round and reactive to light, cp extra-ocular motions intact. Lids and lashes normal. Conjunctiva and sclera are non-icteric and not injected. Cornea within normal limits. Periorbital areas with no swelling, redness, or edema. ENT: Nares patent. No nasal discharge, no septal abnormalities noted. Tympanic membranes are normal and external auditory canals are clear. Oropharynx with no redness, swelling, or masses, exudates, or evidence of obstruction, uvula midline. Mucous membranes moist. Neck: Trachea midline, no thyromegaly or masses palpated, and no cervical lymphadenopathy. Supple, full range of motion without nuchal rigidity, or vertebral point tenderness. No Meningismus. Chest/axilla: Normal chest wall appearance and motion. Nontender with no deformity. No lesions are appreciated. Cardiovascular: Regular rate and rhythm with a normal S1 and S2. No gallops, murmurs, or rubs. Normal PMI, no JVD. No pulse deficits. Respiratory: Lungs have equal breath sounds bilaterally, clear to auscultation and percussion. No rales, rhonchi or wheezes noted. No increased work of breathing, no retractions or nasal flaring. Abdomen/GI: Soft, non-tender, with normal bowel sounds. No distension or tympany. No guarding or rebound. No evidence of tenderness throughout. Skin: Warm, dry with normal turgor. Normal color with no rashes, no lesions, and no evidence of cellulitis. Neuro: Awake and alert, GCS 15, oriented to person, place, time, and situation. Cranial nerves II-XII grossly intact. Motor strength 5/5 in all extremities. Sensory grossly intact. Cerebellar exam normal. Normal gait. 13:20 Constitutional: The patient appears in no acute distress, alert, awake, non-diaphoretic, non-toxic, well developed, well nourished. Vital Signs: 12:19 BP 115 / 92; Pulse 90; Resp 16 S; Temp 97.5(TE); Pulse Ox 98% on R/A; Weight 79.38 kg aa5 (R); Height 5 ft. 9 in. (175.26 cm) (R); Pain 9/10; 13:24 BP 118 / 86; Pulse 81; Resp 17 S; Pulse Ox 97% on R/A; ca1 14:23 BP 113 / 81; Pulse 82; Resp 17 S; Pulse Ox 97% on R/A; Pain 4/10; ca1 12:19 Body Mass Index 25.84 (79.38 kg, 175.26 cm) aa5 MDM: 12:44 Patient medically screened. cp 13:20 Differential diagnosis: meningitis, meningoencephalitis, migraine, sinusitis, cp subarachnoid bleed, tension headache. 14:32 Data reviewed: vital signs, nurses notes. cp 14:32 Counseling: I had a detailed discussion with the patient and/or guardian regarding: the cp historical points, exam findings, and any diagnostic results supporting the discharge/admit diagnosis, lab results, the need for outpatient follow up, a neurologist, to return to the emergency department if symptoms worsen or persist or if there are any questions or concerns that arise at home. Response to treatment: the patient's symptoms have markedly improved after treatment, patient is well hydrated. VSS. Patient reports pain markedly improved. Will discharge to home for continued monitoring. 03/16 12:49 Order name: CBC with Diff; Complete Time: 13:51 cp 03/16 13:51 Interpretation: Normal except: MPV 7.0; EOSINOPHIL % 4.8. cp 03/16 12:49 Order name: BMP; Complete Time: 14:03 cp 03/16 14:03 Interpretation: Normal except: GFR 78. cp 03/16 12:49 Order name: Magnesium; Complete Time: 14:03 cp 03/16 12:49 Order name: Urine Dipstick-Ancillary (obtain specimen); Complete Time: 14:23 cp 03/16 12:49 Order name: IV; Complete Time: 13:09 cp Administered Medications: 13:09 Drug: NS 0.9% 1000 ml Route: IV; Rate: 1 bolus; Site: right antecubital; ca1 14:14 Follow up: Response: No adverse reaction; IV Status: Completed infusion ca1 13:09 Drug: Zofran 4 mg Route: IVP; Site: right antecubital; ca1 14:13 Follow up: Response: No adverse reaction; Pain is decreased ca1 13:11 Drug: Decadron - Dexamethasone 10 mg Route: IVP; Site: right antecubital; ca1 14:14 Follow up: Response: No adverse reaction; Pain is decreased ca1 13:15 Drug: TORadol - Ketorolac 15 mg Route: IVP; Site: right antecubital; ca1 14:14 Follow up: Response: No adverse reaction; Pain is decreased ca1 13:18 Drug: Benadryl 25 mg Route: IVP; Site: right antecubital; ca1 14:13 Follow up: Response: No adverse reaction; Pain is decreased ca1 13:20 Drug: Reglan 10 mg Route: IVP; Site: right antecubital; ca1 14:13 Follow up: Response: No adverse reaction; Pain is decreased ca1 Disposition: 15:00 Chart complete. cp 03/17 07:56 Co-signature as Attending Physician, Jackson Marquez MD I agree with the assessment and kdr plan of care. Disposition: 03/16/19 14:33 Discharged to Home. Impression: Headache. - Condition is Stable. - Discharge Instructions: Migraine Headache. - Prescriptions for Zofran 4 mg Oral Tablet - take 1 tablet by ORAL route every 12 hours As needed; 20 tablet. - Medication Reconciliation Form, Thank You Letter, Antibiotic Education, Prescription Opioid Use form. - Follow up: Private Physician; When: 1 - 2 days; Reason: Recheck today's complaints. - Problem is an acute exacerbation. - Symptoms have improved. Signatures: Dispatcher [employer] EDDC Jackson Marquez MD MD kdr Natalia Freeman RN RN aa5 Reji Garcia PA PA cp Acob, Cheryl, RN RN ca1 Corrections: (The following items were deleted from the chart) 03/16 14:43 14:33 03/16/2019 14:33 Discharged to Home. Impression: Headache. Condition is Stable. ca1 Forms are Medication Reconciliation Form, Thank You Letter, Antibiotic Education, Prescription Opioid Use. Follow up: Private Physician; When: 1 - 2 days; Reason: Recheck today's complaints. Problem is an acute exacerbation. Symptoms have improved. cp
--- NOTE | 2019-03-16 14:34 | ER ---
Nurse's Notes [facility] Name: Alex Ferrer Age: 38 yrs Sex: Male : 1980 Arrival Date: 03/16/2019 Time: 12:01 Bed 15 Private MD: Diagnosis: Headache Presentation: 03/16 12:17 Presenting complaint: Patient states: "I've had a migraine since Thursday". pt reports aa5 nausea/vomiting. Transition of care: patient was not received from another setting of care. Onset of symptoms was March 2019. Risk Assessment: Do you want to hurt yourself or someone else? Patient reports no desire to harm self or others. Initial Sepsis Screen: Does the patient meet any 2 criteria? No. Patient's initial sepsis screen is negative. Does the patient have a suspected source of infection? No. Patient's initial sepsis screen is negative. Care prior to arrival: None. 12:17 Acuity: JULI 3 aa5 12:17 Method Of Arrival: Ambulatory aa5 Triage Assessment: 12:37 Headache History: The patient has had previous headaches and this one is similar to ca1 previous episodes. General: Appears in no apparent distress. comfortable, Behavior is calm, cooperative, appropriate for age. Pain: Complains of pain in scalp and face. Historical: - Allergies: 12:19 No Known Allergies; aa5 - PMHx: 12:19 Depression; insomnia; Kidney stones; Migraines; aa5 - PSHx: 12:19 Kidney stents; Shoulder surgery; Right hand; aa5 - Immunization history:: Adult Immunizations unknown. - Social history:: Smoking status: Patient/guardian denies using tobacco. - Ebola Screening: : No symptoms or risks identified at this time. Screenin:34 Abuse screen: Denies threats or abuse. Denies injuries from another. Nutritional ca1 screening: No deficits noted. Tuberculosis screening: No symptoms or risk factors identified. Fall Risk None identified. Assessment: 12:34 General: Appears in no apparent distress. comfortable, Behavior is calm, cooperative, ca1 appropriate for age. Pain: Complains of pain in face and scalp Pain currently is 9 out of 10 on a pain scale. Quality of pain is described as shooting, throbbing, Pain began 2-3 days ago. Is continuous, Also complains of nausea, photophobia. Neuro: Level of Consciousness is awake, alert, obeys commands, Oriented to person, place, time, situation, Appropriate for age. Neuro: Reports headache photophobia. Cardiovascular: Heart tones S1 S2 present Capillary refill < 3 seconds Patient's skin is warm and dry. Respiratory: Airway is patent Respiratory effort is even, unlabored, Respiratory pattern is regular, symmetrical, Breath sounds are clear bilaterally. GI: Abdomen is flat, non-distended, Bowel sounds present X 4 quads. Abd is soft and non tender X 4 quads. Reports nausea, vomiting. : No deficits noted. No signs and/or symptoms were reported regarding the genitourinary system. EENT: No deficits noted. No signs and/or symptoms were reported regarding the EENT system. Derm: Skin is intact, is healthy with good turgor, Skin is pink, warm \\T\\ dry. Musculoskeletal: Circulation, motion, and sensation intact. Capillary refill < 3 seconds. 13:24 Reassessment: Patient appears in no apparent distress at this time. Patient and/or ca1 family updated on plan of care and expected duration. Pain level reassessed. Patient is alert, oriented x 3, equal unlabored respirations, skin warm/dry/pink. 14:23 Reassessment: Patient appears in no apparent distress at this time. Patient and/or ca1 family updated on plan of care and expected duration. Pain level reassessed. Patient is alert, oriented x 3, equal unlabored respirations, skin warm/dry/pink. Patient states feeling better. Vital Signs: 12:19 BP 115 / 92; Pulse 90; Resp 16 S; Temp 97.5(TE); Pulse Ox 98% on R/A; Weight 79.38 kg aa5 (R); Height 5 ft. 9 in. (175.26 cm) (R); Pain 9/10; 13:24 BP 118 / 86; Pulse 81; Resp 17 S; Pulse Ox 97% on R/A; ca1 14:23 BP 113 / 81; Pulse 82; Resp 17 S; Pulse Ox 97% on R/A; Pain 4/10; ca1 12:19 Body Mass Index 25.84 (79.38 kg, 175.26 cm) aa5 ED Course: 12:01 Patient arrived in ED. as 12:17 Arm band placed on. aa5 12:18 Triage completed. aa5 12:28 AcCortney sorenson LASHA is Primary Nurse. ca1 12:34 Patient has correct armband on for positive identification. Bed in low position. Call ca1 light in reach. Side rails up X 1. Pulse ox on. NIBP on. Door closed. Noise minimized. Lights dimmed. Warm blanket given. 12:34 No provider procedures requiring assistance completed. ca1 12:40 Reji Garcia PA is PHCP. cp 12:40 Jackson Marquez MD is Attending Physician. cp 13:09 Initial lab(s) drawn, by co, sent to lab. Inserted saline lock: 20 gauge in right ca1 forearm, using aseptic technique. Blood collected. 13:55 Warm blanket given. [facility] 14:28 Urine collected: clean catch specimen, cloudy, Amount Voided: 90mL. ca1 14:42 IV discontinued, intact, bleeding controlled, No redness/swelling at site. Pressure ca1 dressing applied. Administered Medications: 13:09 Drug: NS 0.9% 1000 ml Route: IV; Rate: 1 bolus; Site: right antecubital; ca1 14:14 Follow up: Response: No adverse reaction; IV Status: Completed infusion ca1 13:09 Drug: Zofran 4 mg Route: IVP; Site: right antecubital; ca1 14:13 Follow up: Response: No adverse reaction; Pain is decreased ca1 13:11 Drug: Decadron - Dexamethasone 10 mg Route: IVP; Site: right antecubital; ca1 14:14 Follow up: Response: No adverse reaction; Pain is decreased ca1 13:15 Drug: TORadol - Ketorolac 15 mg Route: IVP; Site: right antecubital; ca1 14:14 Follow up: Response: No adverse reaction; Pain is decreased ca1 13:18 Drug: Benadryl 25 mg Route: IVP; Site: right antecubital; ca1 14:13 Follow up: Response: No adverse reaction; Pain is decreased ca1 13:20 Drug: Reglan 10 mg Route: IVP; Site: right antecubital; ca1 14:13 Follow up: Response: No adverse reaction; Pain is decreased ca1 Outcome: 14:33 Discharge ordered by . cp 14:42 Discharged to home ambulatory, with family. ca1 14:42 Condition: stable 14:42 Discharge instructions given to patient, Instructed on discharge instructions, follow up and referral plans. medication usage, Demonstrated understanding of instructions, follow-up care, medications, Prescriptions given X 1. 14:43 Patient left the ED. ca1 Signatures: Dayana Umanzor Audri, RN RN aa5 Reji Garcia PA PA cp Martinez, Maria [facility] Cortney Padgett RN RN ca1
[2019-03-16 14:50] VITALS: TEMP 97.5
[2019-03-16 14:51] VITALS: O2SAT 97
[2019-03-16 14:53] VITALS: BP 113/81
== END 2019-03-16 14:43 | disposition home or self-care (01) ==
LOC: ER 12:00
DX: R51 Headache (principal); Z87.442 Personal history of urinary calculi
CPT/HCPCS: 96361; 85025; 80048; 36415; 83735; 96375; 96374; 99284; J2765; J1200; J1100; J7030; J2405

== ENCOUNTER 2020-03-19 19:02 | Emergency (ER) | payer OTHER, BC ==
--- OUTSIDE RECORDS SUMMARY | 2020-03-19 19:04 | XMS REPORT | Clinical Summary ---
:1980 Author Organization [facility] Address [address] [place] [address] Care Team Providers Name Role Phone Bruno Kothari MD Primary Care Provider Allergies Not on File Medications Not on file Active Problems Not on file Social History Tobacco Use Types Packs/Day Years Used Date Never Assessed Sex Assigned at Date Recorded Not on file Last Filed Vital Signs Not on file Plan of Treatment Health Maintenance Due Date Last Done Comments INFLUENZA VACCINE 12/10/2019 Results Not on fileafter 03/19/2019 Advance Directives For more information, please contact: [phone] Type Date Recorded Patient Tax Attorney Explanati on Advance Directives, Living Will and Medical Power of Visual Specialist
--- OUTSIDE RECORDS SUMMARY | 2020-03-19 19:04 | XMS REPORT | Continuity of Care Document ---
:1980 Author Organization [employer] Care Team Providers Name Role Phone [employer] Unavailable Un available Problems Problem Status Onset Classification Date Comments Sourc e Date Reported Migraine Active Problem 01/03/2019 [facility] (disorder) Neuro Pain (finding) Resolved Problem 01/03/2019 constant Misc her pain in Neuro various areas Paresthesia Active Problem 01/03/2019 [facility] (finding) Neuro Tinnitus Active Problem 01/03/2019 [facility] (finding) Neuro Medications Medication Details Route Status Patient Ordering Order Source Instructions Provider Date eletriptan 40 40 mg = 1 Active [facility] MG Oral Tablet tab, PO, 019 Neuro [Relpax] PRN, PRN migraine, # 6 tab, 1 Refill(s), Pharmacy: [facility] #[id number] frovatriptan 2.5 mg = 1 Inactive [facility] 2.5 mg oral tab, PO, 019 Neuro tablet Daily, PRN for migraine headache, may repeat x 2 with 2 hours between doses if needed, X 3 day, # 9 tab, 2 Refill(s), Pharmacy: [facility] #[id number] {21 See Active [facility] (Methylpredniso Instruction 019 Neur o lone 4 MG Oral s, PO, Take Tablet by mouth as [Medrol]) } directed on Pack [Medrol label., # 1 Dosepak] Pack, 0 Refill(s), Pharmacy: [facility] #[id number] {21 See No Longer [facility] (Methylpredniso Instruction Active 018 Neur o lone 4 MG Oral s, PO, Take Tablet by mouth as [Medrol]) } directed on Pack [Medrol label., # 1 Dosepak] Pack, 0 Refill(s), Pharmacy: [facility] #[id number] 24 HR 100 mg = 1 Active [facility] topiramate 100 cap, PO, 018 Neuro MG Extended Daily, # 30 Release Capsule cap, 3 [Trokendi] Refill(s), Pharmacy: [facility] #[id number] Allergies, Adverse Reactions, Alerts Substance Category Reaction Severity Reaction Status Date Comments S ource type Reported No Known Assertion Drug Misch er Medication allergy Neuro Allergies Immunizations No Data Provided for This Section Results Order Results Value Reference Date Interpretation Comments Source Name Range CHEM Alk Phos 75 40 - 115 05/08 [facility] PANEL /2017 Neuro CHEM Albumin Lvl 4.4 3.6 - 5.1 05/08 [facility] PANEL /2017 Neuro CHEM Globulin 2.7 1.9 - 3.7 05/08 [facility] PANEL Neuro CHEM A/G Ratio 1.6 1.0 - 2.5 05/08 [facility] PAN[facility] Neuro CHEM Bili Total 0.3 0.2 - 1.2 05/08 [facility] PANEL Neuro CHEM ALANINE 23 9 - 46 05/08 Result [facility] PANEL AMINOTRANSFERASE /2017 Comment: Neuro FASTING:YES

F ASTING: YES CHEM ASPARTATE 11 10 - 40 05/08 [facility] PANEL TRANSAMINASE /2017 Neuro CHEM Glucose Lvl 109 65 - 99 05/08 Result [facility] PANEL /2017 Comment: Neuro
Fasting reference interval

For someone without known diabetes, a glucose value
b etween 100 and 125 mg/dL is consistent with<br/&gt ;prediabete s and should be confirmed with a
follo w-up test.

Lab test performed by:
[facility]
[address] [place] [address]
[place] [address]< br/>Deborah Ramos CHEM BUN 25 7 - 25 05/08 [facility] PANEL Neuro CHEM eGFR 102 > OR = 60 05/08 [facility] PANEL ESTONIAN mL/min/1.7 Neuro 3m2 CHEM B/C Ratio NOT 6 - 22 05/08 [facility] PANEL APPLICABLE Neuro CHEM Creatinine Lvl 1.07 0.60 - 05/08 [facility] PANEL 1.35 Neuro CHEM eGFR NON-AFR. 88 > OR = 60 05/08 [facility] PANEL ESTONIAN mL/min/1.7 Neuro 3m2 CHEM Sodium Lvl 138 135 - 146 05/08 [facility] PANEL Neuro CHEM Chloride Lvl 104 98 - 110 05/08 [facility] [place]M CO2 25 20 - 32 05/08 [facility] CHEM Potassium Lvl 4.1 3.5 - 5.3 05/08[facility] CHEM Calcium Lvl 9.3 8.6 - 10.3 05/08 [facility] CHEM Total Protein 7.1 6.1 - 8.1 05/08 [facility] Pathology Reports No Data Provided for This Section Diagnostic Reports No Data Provided for This Section Consultation Notes No Data Provided for This Section Discharge Summaries No Data Provided for This Section History and Physicals No Data Provided for This Section Vital Signs Vital Sign Value Date Comments Source Systolic (mm Hg) 117 06/15/2018 [facility] Diastolic (mm Hg) 86 06/15/2018 [facility] [place] [facility] Heart Rate 87 06/15/2018 [facility] Height 172.72 cm 06/15/2018 [facility] Weight 79.545 06/15/2018 [facility] BMI Calculated 26.66 06/15/2018 [facility] BMI Calculated 27.97 04/28/2018 [facility] Weight 85.909 04/28/2018 [facility] Height 175.26 cm 04/28/2018 [facility] Heart Rate 89 04/28/2018 [facility] Systolic (mm Hg) 124 04/28/2018 [facility] [place] Diastolic (mm Hg) 81 04/28/2018 [facility] BMI Calculated 25.6 04/16/2018 [facility] Weight 78.636 04/16/2018 [facility] Height 175.26 cm 04/16/2018 [facility] Heart Rate 109 04/16/2018 [facility] Neuro Systolic (mm Hg) 117 04/16/2018 [facility] [place]o ro Diastolic (mm Hg) 86 04/16/2018 [facility] [place] uro Encounters Location Location Encounter Encounter Reason Attending ADM MO Stat us Source Details Type Number For Provider Date Date Visit Outpatient [id number] YUNIEL 12/11 [facility] [place] Outpatient [id number] YUNIEL 01/15 [facility] [place] Outpatient [id number] YUNIEL 04/16 [facility] [place] [facility] Outpatient [id number] Yuniel 04/16 04/17 [facility] [place] Outpatient [id number] YUNIEL 04/28 [facility] [place] [facility] Outpatient [id number] Yuniel 04/28 04/29 [facility] [place] Outpatient [id number] YUNIEL 06/15 Active [facility] [place] [facility] Outpatient [id number] Yuniel 06/15 06/16 [facility] [place] Outpatient [id number] YUNIEL 07/13 [facility] [place] Procedures No Data Provided for This Section Assessment and Plan No Data Provided for This Section Plan of Care No Data Provided for This Section Social History Social History Date Source Social History TypeResponse 12/11/2017 [facility] Ne[facility] o Alcohol Current, Frequency: 1-2 times per week. Employment/School Status: Employed. Smoking Status Current some day smoker; Type: Cigars; E xposure to Tobacco Smoke Unable to obtain; Cigarette Smoking Last 365 Days No; Reg Smoking Cessation Counseling No entered on: 06/15/18 Family History No Data Provided for This Section Advance Directives No Data Provided for This Section Functional Status No Data Provided for This Section
[2020-03-19] MEDS ORDERED: HYDROCODONE/APAP 7.5/325 MG TAB ONE (20:28)
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
[2020-03-19] MEDS ORDERED: CYCLOBENZAPRINE 10 MG TAB ONE (21:14)
[2020-03-20 04:25] VITALS: BP 136/97; TEMP 97.1; O2SAT 99
== END 2020-03-19 21:06 | disposition home or self-care (01) ==
LOC: ER 19:02
DX: M54.2 Cervicalgia (principal); V49.50XA Passenger injured in collision with unspecified motor vehicles in traffic accident, initial encounter; F32.9 Major depressive disorder, single episode, unspecified; F17.290 Nicotine dependence, other tobacco product, uncomplicated
CPT/HCPCS: 70450; 72125; 99284

== ENCOUNTER 2020-05-23 16:26 | Emergency (ER) | payer BC ==
--- OUTSIDE RECORDS SUMMARY | 2020-05-23 16:30 | XMS REPORT | Clinical Summary ---
:1980 Author Organization [facility] Address [address] [place] [address] Care Team Providers Name Role Phone Bruno Kothari MD Primary Care Provider Allergies Not on File Medications Not on file Active Problems Not on file Social History Tobacco Use Types Packs/Day Years Used Date Never Assessed Sex Assigned at Date Recorded Not on file Last Filed Vital Signs Not on file Plan of Treatment Health Maintenance Due Date Last Done Comments COVID-19 VACCINE (1 of 2) 1996 INFLUENZA VACCINE 12/10/2019 Results Not on fileafter 05/23/2019 Advance Directives For more information, please contact: [phone] Type Date Recorded 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
--- OUTSIDE RECORDS SUMMARY | 2020-05-23 16:30 | XMS REPORT | Continuity of Care Document ---
:1980 Author Organization [facility] Care Team Providers Name Role Phone [facility] Unavailable Un available Problems Problem Status Onset [...] tab, 1 Refill(s), Pharmacy: [facility] #[id number] frovatriptan 2.5 mg = 1 Inactive [facility]ischer 2.5 mg oral tab, PO, 019 Neuro tablet Daily, PRN for migraine headache, may repeat x 2 with 2 hours between doses if needed, X 3 day, # 9 tab, 2 Refill(s), Pharmacy: [facility] #[id number] {21 See Active Mischer (Methylpredniso Instruction 019 Neur o lone 4 MG Oral s, PO, Take Tablet by mouth as [Medrol]) } directed on Pack [Medrol label., # 1 Dosepak] Pack, 0 Refill(s), Pharmacy: [facility] #[id number] {21 See No Longer Mischer (Methylpredniso Instruction Active 018 Neur o lone 4 MG Oral s, PO, Take Tablet by mouth as [Medrol]) } directed on Pack [Medrol label., # 1 Dosepak] Pack, 0 Refill(s), Pharmacy: [facility] #[id number] 24 HR 100 mg = 1 Active [facility] topiramate 100 cap, PO, 018 Neuro MG Extended Daily, # 30 Release Capsule cap, 3 [Trokendi] Refill(s), Pharmacy: [facility] #[id number] Allergies, Adverse Reactions, Alerts Substance Category Reaction [...]
follo w-up test.

Lab test performed by:
[facility]
[address] [place] [address]
[place] [address]< br/>Deborah Ramos CHEM BUN 25 7 - 25 05/08 [facility] Neuro CHEM eGFR 102 > OR = 60 05/08 [facility] [place] mL/min/1.7 Neuro 3m2 CHEM B/C Ratio NOT 6 - 22 05/08 [facility] APPLICABLE Neuro CHEM Creatinine Lvl 1.07 0.60 - 05/08 [facility] PANEL 1.35 Neuro CHEM eGFR NON-AFR. 88 > OR = 60 05/08 [facility] [place] mL/min/1.7 Neuro 3m2 CHEM Sodium Lvl 138 135 - 146 05/08 [facility] CHEM Chloride Lvl 104 98 - 110 05/08 [facility] CHEM CO2 25 20 - 32 05/08 [facility] CHEM Potassium Lvl 4.1 3.5 - 5.3 05/08 [facility] CHEM Calcium Lvl 9.3 8.6 - 10.3 05/08 [facility] CHEM Total Protein 7.1 6.1 - 8.1 05/08 [facility] Pathology Reports No Data Provided for This Section Diagnostic Reports No Data Provided for This Section Consultation Notes No Data Provided for This Section Discharge Summaries No Data Provided for This Section History and Physicals No Data Provided for This Section Vital Signs Vital Sign Value Date Comments Source Systolic (mm Hg) 117 06/15/2018 [facility] Diastolic (mm Hg) 86 06/15/2018 [facility] Heart Rate 87 06/15/2018 [facility] Height 172.72 cm 06/15/2018 [facility] Weight 79.545 06/15/2018 [facility] BMI Calculated 26.66 06/15/2018 [facility] BMI Calculated 27.97 04/28/2018 [facility] Weight 85.909 04/28/2018 [facility] Height 175.26 cm 04/28/2018 [facility] Heart Rate 89 04/28/2018 [facility] Systolic (mm Hg) 124 04/28/2018 [facility] Capo ro Diastolic (mm Hg) 81 04/28/2018 [facility] BMI Calculated 25.6 04/16/2018 [facility] Weight 78.636 04/16/2018 [facility] Height 175.26 cm 04/16/2018 [facility] Heart Rate 109 04/16/2018 [facility] Systolic (mm Hg) 117 04/16/2018 [facility] Capo ro Diastolic (mm Hg) 86 04/16/2018 [facility] Encounters Location Location Encounter Encounter Reason Attending ADM [place] Stat us Source Details Type Number For Provider Date Date Visit Outpatient [id number] YUNIEL 12/11 [facility] [place] Outpatient [id number] YUNIEL 01/15 [facility] [place] Outpatient [id number] YUNIEL 04/16 [facility] [place] [facility] Outpatient [id number] Yuniel 04/16 04/17 [facility] [place] Outpatient [id number] YUNIEL 04/28 Active [facility] [place] [facility] Outpatient [id number] Yuniel 04/28 04/29 [facility] [place] Outpatient [id number] YUNIEL 06/15 Active [facility] [place] [facility] Outpatient [id number] Yuniel 06/15 06/16 [facility] [place] Outpatient [id number] YUNIEL 07/13 [facility] [place] Procedures No Data Provided for [...]
--- OUTSIDE RECORDS SUMMARY | 2020-05-23 16:31 | XMS REPORT | Summary of Care ---
:1980 Author Organization [facility] Address [address] [place] [address] Care Team Providers Name Role Phone Chun Thorne Primary Care Provider Reason for Visit Reason Comments MIGRAINE Encounter Details Date Type Department Care Team Description 04/19/2020 Emergency ADC-Emergency Rita Daniel, TYRA Other migraine without Department [address] status migrainosus, [address] [place], [place] [address] [address] ([address] [phone] Dx) [place] [address] [phone] Allergies No Known Allergiesdocumented as of this encounter (statuses as of 04/19/2020) Medications Medication Sig Dispensed Refills Start Date End Date Status tamsulosin (FLOMAX) Take 1 Cap by 14 Cap 0 06/02/2015 Active 0.4 mg 24 hr capsule mouth at bedtime. acetaminophen-codeine Take 1 Tab by 20 Tab 0 06/02/2015 Active (TYLENOL-CODEINE #3) mouth every 6 300-30 mg tablet (six) hours as needed for Pain (scale 4-6). documented as of this encounter (statuses as of 04/19/2020) Active Problems Not on filedocumented as of this encounter (statuses as of 04/19/2020) Social History Tobacco Use Types Packs/Day Years Used Date Never Assessed Sex Assigned at Date Recorded Not on file COVID-19 Exposure Response Date Recorded In the last month, have you been in contact with No / Unsure 04/19/2020 1:12 PM CLINICAL OPERATIONS CONSULTANT someone who was confirmed or suspected to have Coronavirus / COVID-19? documented as of this encounter Last Filed Vital Signs Vital Sign Reading Time Taken Comments Blood Pressure 129/90 04/19/2020 5:10 PM CLINICAL OPERATIONS CONSULTANT Pulse 80 04/19/2020 5:10 PM CLINICAL OPERATIONS CONSULTANT Temperature 36.9 C (98.5 F) 04/19/2020 1:15 PM CLINICAL OPERATIONS CONSULTANT Respiratory Rate 20 04/19/2020 3:00 PM CLINICAL OPERATIONS CONSULTANT Oxygen Saturation 94% 04/19/2020 4:05 PM CLINICAL OPERATIONS CONSULTANT Inhaled Oxygen Concentration - - Weight 79.4 kg (175 lb) 04/19/2020 1:15 PM CLINICAL OPERATIONS CONSULTANT Height 175.3 cm (5' 9") 04/19/2020 1:15 PM CLINICAL OPERATIONS CONSULTANT Body Mass Index 25.84 04/19/2020 1:15 PM CLINICAL OPERATIONS CONSULTANT documented in this encounter Discharge Instructions AttachmentsThe following attachments cannot be sent through Care Everywhere. Headache, Migraine, Classic (Welsh)documented in this encounter ED Notes Jessy Seaman RN - 04/19/2020 1:13 PM CSTPatient states: "It started Thursday. 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 I walked through it. It hit me right away and I got nausea, vertigo, the sensitivity to light and sound. That's why I'm wearing sunglasses inside. " Pmhx: migraines Neurologist: Tamara spence. Rx: Realpax. documented in this encounter Plan of Treatment Health Maintenance Due Date Last Done Comments VARICELLA VACCINES (1 of 2 - 1981 2-dose childhood series) Depression Screening 1992 DTaP,Tdap,and Td Vaccines (1 - 10/27/1999 Tdap) INFLUENZA VACCINE (#1) 2020 PNEUMOCOCCAL 0-64 YEARS COMBINED Aged Out No longer eligible based on SERIES patient's age to complete this topic documented as of this encounter Procedures Procedure Name Priority Date/Time Associated Diagnosis Comme nts CONSENT/REFUSAL FOR Routine 04/19/2020 1:02 PM CLINICAL OPERATIONS CONSULTANT DIAGNOSIS AND TREATMENT documented in this encounter Results Not on filedocumented in this encounter Visit Diagnoses Diagnosis Other migraine without status migrainosu s, intractable - Primary documented in this encounter Administered Medications Medication Order MAR Action Action Date Dose Rate Site diphenhydrAMINE (BENADRYL) Given 04/19/2020 2:12 PM CLINICAL OPERATIONS CONSULTANT 25 mg injection 25 mg 25 mg, Slow IV Push, ONCE, 1 dose, Summer 04/19/20 at 1445, STAT FENTanyl PF (SUBLIMAZE (PF)) injection 50 Given 04/19/2020 4:01 PM CLINICAL OPERATIONS CONSULTANT 50 mcg mcg 50 mcg, Slow IV Push, ONCE, 1 dose, Summer 04/19/20 at 1700, STAT ketorolac (TORADOL) injection 30 mg Given 04/19/2020 2:11 PM CLINICAL OPERATIONS CONSULTANT 30 mg 30 mg, Slow IV Push, ONCE, 1 dose, Summer 04/19/20 at 1445, GARRY, assembly member approving Restricted medication: Rita DANIEL magnesium sulfate in water 2 gram/50 mL (4 %) New Bag 4:00 PM CLINICAL OPERATIONS CONSULTANT 2 g infusion 2 g 2 g, IV Piggyback, ONCE, 1 dose, Summer 04/19/20 at 1700, Routine metoclopramide HCl (REGLAN) injection 10 mg Given 04/19/2020 2:12 PM CLINICAL OPERATIONS CONSULTANT 10 mg 10 mg, Slow IV Push, ONCE, 1 dose, Sumemr 04/19/20 at 1445, GARRY NaCl 0.9% (NS) bolus infusion New Bag 04/19/2020 2:11 PM CLINICAL OPERATIONS CONSULTANT 1,000 mL 999 mL/hr 1,000 mL at 999 mL/hr, 1,000 mL, IV Infusion, ONCE, 1 dose, Summer 04/19/20 at 1445, STAT documented in this encounter Insurance Payer Benefit Plan Subscriber ID Effective Dates Phone Address Type / Group BCBS OF [facility] [id number] 2018-Monica [phone] [address] PPO/POS [place] - OUT OF t 7 [id number] [place] [address] [address]) [place], [place] [phone] (Work) documented as of this encounter
--- OUTSIDE RECORDS SUMMARY | 2020-05-23 16:31 | XMS REPORT | Continuity of Care Document ---
:1980 Author Organization [facility] t Address [address] [place] [address] Care Team Providers Name Role Phone Taye ESTRADA Primary Care Physician Agnes Danielle Attending Clinician David Hernandes Attending Clinician Problems Condition Condition Condition Status Onset Resolution Last Treating Co mments Source Name Details Category Date Date Treatment Clinician Date Pain Problem Resolve 2019-01-03 Jm brandin (finding) d 14:25:32 l Pain Orestes (finding) Resolved Problem 01/03/2019 constant pain in various areas [facility] Migraine Problem Active 2019-01-03 Mem oria (disorder) 14:25:32 l Migraine Hamzah n (disorder) Active Problem 01/03/2019 [facility] Paresthesi Problem Active 2019-01-03 M emoria a 14:25:32 l (finding) [place] Paresthesi a (finding) Active Problem 01/03/2019 [facility] Tinnitus Problem Active 2019-01-03 Mem oria (finding) 14:25:32 l Tinnitus Hamzah n (finding) Active Problem 01/03/2019 [facility] Allergies, Adverse Reactions, Alerts Allergy Allergy Status Severity Reaction(s) Onset Inactive Treating Comm ents Source Name Type Date Date Clinician No Known No Known Active Memori a Medicati Medicati l on on Orestes Degroot s s Social History Social Habit Start Date Stop Date Quantity Comments Source Sex Assigned At [facility] ethodist Social History 2017-12-11 2017-12-11 [facility] 20:17:51 20:17:51 Medications Ordered Filled Start Stop Current Ordering Indication Dosage Frequency Signature Comments Components Source Medication Medication Date Date Medication? Clinician (SIG) Name Name eletriptan Yes 40 mg = 1 Me moria 40 MG Oral 2-05 tab, PO, l Tablet 21:05: PRN, PRN Orestes [Relpax] 00 migraine, # 6 tab, 1 Refill(s), Pharmacy: [facility] #[id number] frovatripta No 2.5 mg = 1 Memoria n 2.5 mg 2-05 tab, PO, l oral tablet 17:09: Daily, PRN Orestes 00 for migraine headache, may repeat x 2 with 2 hours between doses if needed, X 3 day, # 9 tab, 2 Refill(s), Pharmacy: [facility] #[id number] { Yes See Memoria (Methylpred 2-05 Instructio l nisolone 4 17:09: ns, PO, Herm vy MG Oral 00 Take by Tablet mouth as [Medrol]) } directed Pack on label., [Medrol # 1 Pack, Dosepak] 0 Refill(s), Pharmacy: [facility] #[id number] {2017-05 No See Memoria (Methylpred 2-07 Instructio l nisolone 4 22:17: ns, PO, Herm vy MG Oral 00 Take by Tablet mouth as [Medrol]) } directed Pack on label., [Medrol # 1 Pack, Dosepak] 0 Refill(s), Pharmacy: [facility] #[id number] 24 HR 2017-05 Yes 100 mg = 1 Memori a topiramate 2-07 cap, PO, l 100 MG 22:11: Daily, # Orestes Extended 00 30 cap, 3 Release Refill(s), Capsule Pharmacy: [Yee] [facility] #[id number] Vital Signs Vital Name Observation Time Observation Value Comments Source Systolic (mm Hg) 2018-06-15 16:40:00 Jm [place] Diastolic (mm Hg) 2018-06-15 16:40:00 Mem orial [place] Heart Rate 2018-06-15 16:40:00 [facility] Height 2018-06-15 16:40:00 172.72 cm [facility] [place] Weight 2018-06-15 16:40:00 [facility] [place] BMI Calculated 2018-06-15 16:40:00 Memori al [place] BMI Calculated 2018-04-28 22:05:00 Memori al [place] Weight 2018-04-28 22:05:00 [facility] [place] Height 2018-04-28 22:05:00 175.26 cm [facility] Heart Rate 2018-04-28 22:05:00 [facility] [place] Systolic (mm Hg) 2018-04-28 22:05:00 Jm rial [place] Diastolic (mm Hg) 2018-04-28 22:05:00 Mem orial [place] BMI Calculated 2018-04-16 21:35:00 Mem[facility] [place] Weight 2018-04-16 21:35:00 [facility] [place] Height 2018-04-16 21:35:00 175.26 cm [facility] [place] Heart Rate 2018-04-16 21:35:00 [facility] [place] Systolic (mm Hg) 2018-04-16 21:35:00 Jm rial O[place] Diastolic (mm Hg) 2018-04-16 21:35:00 Mem orial [place] Procedures This patient has no known procedures. Plan of Care Planned Activity Planned Date Details Comments Source Future Scheduled 2019-12-10 INFLUENZA VACCINE [facility] 00:00:00 [code = INFLUENZA VACCINE] Future Scheduled 1996 COVID-19 VACCINE (1 [place] [facility] 00:00:00 of 2) [code = COVID-19 VACCINE (1 of 2)] Encounters Start End Encounter Admission Attending Care Care Encounter Source Date/Time Date/Time Type Type Clinicians Facility Department ID 2020-04-19 2020-04-19 Emergency Rita Arboleda [facility] [id number] 13:17:00 17:14:00 Agnes Moore [id number] [place] [id number] [place] [id number] 2018-06-15 2018-06-15 Outpatient FRIEDA Hernandes [id number] 10:45:00 23:59:59 [place] 05 David 2018-04-28 2018-04-28 Outpatient FRIEDA Hernandes [id number] 16:15:00 23:59:59 [place] 03 David 2018-04-16 2018-04-16 [id number] 15:45:00 23:59:59 Gir[place] 02 David Results Test Description Test Time Test Comments Results Result Comments Source CHEM PANEL 2018-05-08 75 [facility] 14:39:00 CHEM PANEL 2018-05-08 4.4 [facility] 14:39:00 CHEM PANEL 2018-05-08 2.7 [facility] 14:39:00 CHEM PANEL 2018-05-08 1.6 [facility] 14:39:00 CHEM PANEL 2018-05-08 0.3 [facility] 14:39:00 CHEM PANEL 2018-05-08 23 [facility] 14:39:00 CHEM PANEL 2018-05-08 11 [facility] 14:39:00 CHEM PANEL 2018-05-08 109 [facility] 14:39:00 CHEM PANEL 2018-05-08 25 [facility] 14:39:00 CHEM PANEL 2018-05-08 102 [facility] 14:39:00 CHEM PANEL 2018-05-08 1.07 [facility] 14:39:00 CHEM PANEL 2018-05-08 88 [facility] 14:39:00 CHEM PANEL 2018-05-08 138 [facility] 14:39:00 CHEM PANEL 2018-05-08 104 [facility] 14:39:00 CHEM PANEL 2018-05-08 25 [facility] 14:39:00 CHEM PANEL 2018-05-08 4.1 [facility] 14:39:00 CHEM PANEL 2018-05-08 9.3 [facility] 14:39:00 CHEM PANEL 2018-05-08 7.1 [facility] 14:39:00
[2020-05-23] MEDS ORDERED: METOCLOPRAMIDE 10 MG/2mL INJ ONE (20:19)
[2020-05-23] MEDS ORDERED: DIPHENHYDRAMINE 50 MG/ML VIAL ONE (20:19)
[2020-05-23] MEDS ORDERED: NA CHLORIDE 0.9% 1,000 ML ONE (20:20)
[2020-05-23] MEDS ORDERED: dexAMETHasone 10 MG/ML VIAL ONE (20:20)
[2020-05-23] MEDS ORDERED: KETOROLAC 30 MG/ML INJ ONE (20:20)
[2020-05-23 20:36] LABS: Absolute Lymphocytes (CBC) 2.7 K/uL (0.7-4.9); Basophils % 0.8 % (0-1.3); Hematocrit 44.3 % (39.6-49.0); Lymphocytes % 29.1 % (15.3-44.8); MPV 7.1 fL (7.6-11.3); RBC Red Blood Cell Count 5.02 M/uL (4.33-5.43)
[2020-05-23 20:52] LABS: Potassium 3.6 mmol/L (3.5-5.1)
--- NOTE | 2020-05-23 21:21 | EDPHYS ---
Physician Documentation [facility] Name: Alex Ferrer Age: 39 yrs Sex: Male : 1980 Arrival Date: 05/23/2020 Time: 16:28 Bed 16 Private MD: AMINA Physician Reji Adkins HPI: 05/23 19:54 This 39 yrs old Male presents to ER via Ambulatory with complaints of cp Headache. 19:54 The patient complains of pain to the left side of head and behind left eye. Onset: The cp symptoms/episode began/occurred 1 week(s) ago. Associated signs and symptoms: Pertinent positives: nausea, Photophobia vomiting, Pertinent negatives: fever. Severity of symptoms: in the emergency department the pain a " 9" out of "10". Headache History: The patient has had previous headaches and this one is similar to previous episodes. 19:55 The patient describes the headache as aching, similar to previous migraine headaches. cp Historical: - Allergies: 16:47 No Known Allergies; jl7 - Home Meds: 16:47 Relpax oral oral [Active]; Fluoxetine Oral [Active]; Lunesta oral oral [Active]; jl7 - PMHx: 16:47 Depression; insomnia; Kidney stones; Migraines; jl7 - PSHx: 16:47 Kidney stents; Shoulder surgery; Right hand; jl7 - Immunization history:: Adult Immunizations not up to date. - Social history:: Smoking status: Patient reports the use of cigarette tobacco products, cigars. ROS: 20:00 Constitutional: Negative for body aches, chills, fever. cp 20:00 Eyes: Positive for photophobia. cp 20:00 ENT: Negative for ear pain, sinus congestion, sinus pain, sore throat, difficulty swallowing, difficulty handling secretions. 20:00 Neck: Negative for pain with movement, pain at rest, stiffness. 20:00 Cardiovascular: Negative for chest pain. 20:00 Respiratory: Negative for cough, shortness of breath, wheezing. 20:00 Abdomen/GI: Positive for nausea and vomiting, Negative for abdominal pain, diarrhea, constipation. 20:00 Neuro: Positive for headache, Negative for altered mental status, weakness. 20:00 All other systems are negative. Exam: 20:05 Constitutional: The patient appears in no acute distress, alert, awake, non-toxic, well cp developed, well nourished. 20:05 Head/Face: Normocephalic, atraumatic. cp 20:05 Eyes: Periorbital structures: appear normal, Conjunctiva: normal, no exudate, no injection, Sclera: no appreciated abnormality, Lids and lashes: appear normal, bilaterally. 20:05 ENT: External ear(s): are unremarkable, Nose: is normal, Mouth: Lips: moist, Oral mucosa: moist, Posterior pharynx: Airway: no evidence of obstruction, patent, swelling, is not appreciated, erythema, is not appreciated, exudate, is not appreciated. 20:05 Neck: ROM/movement: is normal, is supple, no meningismus, no nuchal rigidity. 20:05 Chest/axilla: Inspection: normal, Palpation: is normal, no crepitus, no tenderness. 20:05 Cardiovascular: Rate: tachycardic, Rhythm: regular. 20:05 Respiratory: the patient does not display signs of respiratory distress, Respirations: normal, no use of accessory muscles, no retractions, labored breathing, is not present, Breath sounds: are clear throughout, no decreased breath sounds, no stridor, no wheezing. 20:05 Abdomen/GI: Inspection: abdomen appears normal, Palpation: abdomen is soft and non-tender, in all quadrants. 20:05 Neuro: Orientation: to person, place \\T\\ time. Mentation: is normal, Cerebellar function: is grossly normal, Motor: moves all fours, strength is normal, Sensation: is normal. Vital Signs: 16:42 BP 136 / 104; Pulse 103; Resp 17; Temp 98.8; Pulse Ox 99% ; Weight 79.38 kg; Height 5 jl7 ft. 10 in. (177.80 cm); Pain 9/10; 20:31 BP 125 / 101; Pulse 95; Resp 16; Pulse Ox 99% on R/A; zb 16:42 Body Mass Index 25.11 (79.38 kg, 177.80 cm) jl7 MDM: 19:50 Patient medically screened. sandeep 21:20 Data reviewed: vital signs, nurses notes, lab test result(s). cp 21:20 Differential diagnosis: meningitis, meningoencephalitis, migraine, sinusitis, cp subarachnoid bleed, tension headache. Counseling: I had a detailed discussion with the patient and/or guardian regarding: the historical points, exam findings, and any diagnostic results supporting the discharge/admit diagnosis, lab results, to return to the emergency department if symptoms worsen or persist or if there are any questions or concerns that arise at home. Response to treatment: the patient's symptoms have markedly improved after treatment, VSS. Headache and nausea markedly improved. Will discharge to home for continued monitoring. 05/23 19:57 Order name: CBC with Diff; Complete Time: 21: cp 05/23 19:57 Order name: BMP; Complete Time: 21: cp 05/23 18:57 Order name: IV; Complete Time: 20:26 cp 05/23 21:09 Order name: PO challenge; Complete Time: 21:40 cp Administered Medications: 20:00 Drug: NS 0.9% 1000 ml Route: IV; Rate: 1 bolus; Site: right antecubital; rr5 21:43 Follow up: Response: No adverse reaction; IV Status: Completed infusion; IV Intake: zb 1000ml 20:20 Drug: Benadryl 25 mg Route: IVP; Site: right antecubital; rr5 21:40 Follow up: Response: No adverse reaction zb 20:22 Drug: Dexamethasone 10 mg Route: IVP; Site: right antecubital; rr5 21:40 Follow up: Response: No adverse reaction; Pain is decreased zb 20:24 Drug: TORadol - Ketorolac 15 mg Route: IVP; Site: right antecubital; rr5 21:40 Follow up: Response: No adverse reaction; Pain is decreased zb 20:26 Drug: Reglan 10 mg Route: IVP; Site: right antecubital; rr5 21:43 Follow up: Response: No adverse reaction; Pain is decreased zb Disposition: 21:30 Chart complete. cp 05/24 07:44 Co-signature as Attending Physician, Reji Adkins MD I agree with the assessment and sandeep plan of care. Disposition: 05/23/20 21:21 Discharged to Home. Impression: Headache. - Condition is Stable. - Discharge Instructions: Migraine Headache. - Prescriptions for Fiorinal 50- 325-40 mg Oral Capsule - take 1 capsule by ORAL route every 4 hours As needed - not to exceed 6 capsules per day; 20 capsule. Zofran 4 mg Oral Tablet - take 1 tablet by ORAL route every 12 hours As needed; 20 tablet. Phenergan 25 mg Rectal Suppository - insert 1 suppository by RECTAL route every 6 hours As needed; 12 suppository. - Medication Reconciliation Form, Thank You Letter, Antibiotic Education, Prescription Opioid Use form. - Follow up: Private Physician; When: 1 - 2 days; Reason: Recheck today's complaints. - Problem is an acute exacerbation. - Symptoms have improved. Signatures: Dispatcher [employer] EDReji Mendez MD MD cha Page, Corey, PA PA cp Leal, Jahala, RN RN jl7 Simba Palacios RN RN rr5 Irish Culver RN RN zb Corrections: (The following items were deleted from the chart) 05/23 21:45 21:21 05/23/2020 21:21 Discharged to Home. Impression: Headache. Condition is Stable. zb Forms are Medication Reconciliation Form, Thank You Letter, Antibiotic Education, Prescription Opioid Use. Follow up: Private Physician; When: 1 - 2 days; Reason: Recheck today's complaints. Problem is an acute exacerbation. Symptoms have improved. cp
--- NOTE | 2020-05-23 21:21 | ER ---
Nurse's Notes [facility] Name: Alex Ferrer Age: 39 yrs Sex: Male : 1980 Arrival Date: 05/23/2020 Time: 16:28 Bed 16 Private MD: Diagnosis: Headache Presentation: 05/23 16:42 Chief complaint: Patient states: Migraine x 7 days, hx of migraines, takes Relpax with jl7 no improvement. Dry cough x 1 day, states "It's a sinus problem.". Coronavirus screen: Client denies travel out of the [place] in the last 14 days. At this time, the client does not indicate any symptoms associated with coronavirus-19. Ebola Screen: No symptoms or risks identified at this time. Initial Sepsis Screen: Does the patient meet any 2 criteria? No. Patient's initial sepsis screen is negative. Does the patient have a suspected source of infection? No. Patient's initial sepsis screen is negative. Risk Assessment: Do you want to hurt yourself or someone else? Patient reports no desire to harm self or others. Onset of symptoms was May 16, 2019. Care prior to arrival: None. 16:42 Method Of Arrival: Ambulatory [facility] 16:42 Acuity: JULI 3 jl7 Triage Assessment: 16:47 Headache History: The patient has had previous headaches and this one is similar to jl7 previous episodes. General: Appears in no apparent distress. uncomfortable, Behavior is calm, cooperative, appropriate for age. Pain: Complains of pain in left eye Pain currently is 9.5 out of 10 on a pain scale. Pain began x1 week Also complains of nausea, photophobia. Neuro: Level of Consciousness is awake, alert, obeys commands, Oriented to person, place, time, situation. Historical: - Allergies: 16:47 No Known Allergies; jl7 - Home Meds: 16:47 Relpax oral oral [Active]; Fluoxetine Oral [Active]; Lunesta oral oral [Active]; jl7 - PMHx: 16:47 Depression; insomnia; Kidney stones; Migraines; jl7 - PSHx: 16:47 Kidney stents; Shoulder surgery; Right hand; jl7 - Immunization history:: Adult Immunizations not up to date. - Social history:: Smoking status: Patient reports the use of cigarette tobacco products, cigars. Screenin:31 Abuse screen: Denies threats or abuse. Denies injuries from another. Nutritional zb screening: No deficits noted. Tuberculosis screening: No symptoms or risk factors identified. Fall Risk None identified. Assessment: 20:28 General: Appears in no apparent distress. uncomfortable, Behavior is calm, cooperative, zb appropriate for age. Pain: Complains of pain in left eye, headache, sinus pressure Pain currently is 9 out of 10 on a pain scale. Quality of pain is described as aching, Pain began a week ago Is Also complains of nausea, photophobia. Neuro: Level of Consciousness is awake, alert, Oriented to person, place, time, situation. Cardiovascular: Denies chest pain, Heart tones S1 S2 present Patient's skin is warm and dry. Respiratory: Reports cough that is Airway is patent Respiratory effort is even, unlabored, Respiratory pattern is regular, symmetrical, Breath sounds are clear bilaterally. GI: Abdomen is round non-distended. : No signs and/or symptoms were reported regarding the genitourinary system. EENT: Reports pain in left eye photophobia. Derm: Skin is intact, is healthy with good turgor, Skin is dry, Skin is normal, Skin temperature is warm. Musculoskeletal: No signs and/or symptoms reported regarding the musculoskeletal system. 21:40 Reassessment: Patient appears in no apparent distress at this time. Patient and/or zb family updated on plan of care and expected duration. Pain level reassessed. Patient is alert/active/playful, equal unlabored respirations, skin warm/dry/pink. patient rates pain 2/10. states he feels a lot better. d/c given. ambulatory, up ad sarah, gait steady. Vital Signs: 16:42 BP 136 / 104; Pulse 103; Resp 17; Temp 98.8; Pulse Ox 99% ; Weight 79.38 kg; Height 5 jl7 ft. 10 in. (177.80 cm); Pain 9/10; 20:31 BP 125 / 101; Pulse 95; Resp 16; Pulse Ox 99% on R/A; zb 16:42 Body Mass Index 25.11 (79.38 kg, 177.80 cm) jl7 ED Course: 16:28 Patient arrived in ED. as 16:46 Triage completed. jl7 16:47 Arm band placed on right wrist. jl7 19:42 [facility] cp 19:42 Brendan Cheung MD is Attending Physician. cp 19:50 Attending Physician role handed off by Brendan Cheung MD cha 19:50 Reji Adkins MD is Attending Physician. [facility] 20:00 Inserted saline lock: 20 gauge in right antecubital area, using aseptic technique. rr5 Blood collected. 20:18 Irish Culver, RN is Primary Nurse. zb 20:31 Patient has correct armband on for positive identification. Pulse ox on. NIBP on. Door zb closed. Noise minimized. Warm blanket given. 21:44 No provider procedures requiring assistance completed. IV discontinued, intact, zb bleeding controlled, No redness/swelling at site. Pressure dressing applied. Administered Medications: 20:00 Drug: NS 0.9% 1000 ml Route: IV; Rate: 1 bolus; Site: right antecubital; rr5 21:43 Follow up: Response: No adverse reaction; IV Status: Completed infusion; IV Intake: zb 1000ml 20:20 Drug: Benadryl 25 mg Route: IVP; Site: right antecubital; rr5 21:40 Follow up: Response: No adverse reaction zb 20:22 Drug: Dexamethasone 10 mg Route: IVP; Site: right antecubital; rr5 21:40 Follow up: Response: No adverse reaction; Pain is decreased zb 20:24 Drug: TORadol - Ketorolac 15 mg Route: IVP; Site: right antecubital; rr5 21:40 Follow up: Response: No adverse reaction; Pain is decreased zb 20:26 Drug: Reglan 10 mg Route: IVP; Site: right antecubital; rr5 21:43 Follow up: Response: No adverse reaction; Pain is decreased zb Intake: 21:43 IV: 1000ml; Total: 1000ml. zb Outcome: 21:21 Discharge ordered by . cp 21:44 Discharged to home ambulatory. zb 21:44 Condition: stable 21:44 Discharge instructions given to patient, Instructed on discharge instructions, follow up and referral plans. medication usage, Demonstrated understanding of instructions, follow-up care, medications, Prescriptions given X 3. 21:45 Patient left the ED. zb Signatures: Jed, Reji, MD MD sandeep NoéDayana Corey, PA PA cp Leal, Jahala, RN RN jl7 Simba Palacios, RN RN rr5 Irish Culver, RN RN zb
[2020-05-23 21:54] VITALS: BP 125/101; O2SAT 99
[2020-05-23 21:56] VITALS: TEMP 98.8
== END 2020-05-23 21:45 | disposition home or self-care (01) ==
LOC: ER 16:26
DX: R51.9 Headache, unspecified (principal); G47.00 Insomnia, unspecified; F32.9 Major depressive disorder, single episode, unspecified; F17.210 Nicotine dependence, cigarettes, uncomplicated
CPT/HCPCS: 96361; 85025; 80048; 36415; 96375; 96374; 99284; J2765; J1200; J1100; J7030

== ENCOUNTER 2020-10-19 13:43 | Emergency (ER) | payer BC ==
[2020-10-19] MEDS ORDERED: NA CHLORIDE 0.9% 1,000 ML ONE (15:23)
[2020-10-19] MEDS ORDERED: KETOROLAC 30 MG/ML INJ ONE (15:23)
[2020-10-19] MEDS ORDERED: METOCLOPRAMIDE 10 MG/2mL INJ ONE (15:23)
[2020-10-19] MEDS ORDERED: DIPHENHYDRAMINE 50 MG/ML VIAL ONE (15:23)
--- NOTE | 2020-10-19 16:12 | EDPHYS ---
Physician Documentation [facility] Name: Alex Ferrer Age: 39 yrs Sex: Male : 1980 Arrival Date: 10/19/2020 Time: 13:44 Bed 27 Private MD: ED Physician Jackson Marquez HPI: 10/19 20:16 This 39 yrs old Male presents to ER via Ambulatory with complaints of kb Headache. 20:16 The patient complains of pain to the top of head. The patient describes the headache as kb constant, throbbing. Onset: The symptoms/episode began/occurred 1 week(s) ago. Associated signs and symptoms: Pertinent positives: nausea, Photophobia vomiting. Severity of symptoms: At its worst the pain was moderate, in the emergency department the pain is unchanged. Headache History: The patient has had previous headaches and this one is similar to previous episodes. The symptoms are alleviated by nothing. the symptoms are aggravated by lights, movement, noise. The patient has not experienced similar symptoms in the past. The patient has not recently seen a physician. Historical: - Allergies: 13:55 No Known Allergies; kg - PMHx: 13:55 Migraines; Kidney stones; insomnia; Depression; kg - PSHx: 13:55 Right shoulder surgery; Middle finger right hand surgery; kg - Immunization history:: Adult Immunizations not up to date, Client reports having NOT received the Covid vaccine. - Social history:: Smoking status: Patient denies any tobacco usage or history of. Patient uses alcohol, occasionally. ROS: 20:16 Constitutional: Negative for fever, chills, and weight loss. kb 20:16 Abdomen/GI: Positive for nausea and vomiting. 20:16 Neuro: Positive for headache. 20:16 All other systems are negative. Exam: 20:16 Constitutional: This is a well developed, well nourished patient who is awake, alert, kb and in no acute distress. Head/Face: Normocephalic, atraumatic. ENT: Moist Mucous membranes Cardiovascular: Regular rate and rhythm with a normal S1 and S2. No gallops, murmurs, or rubs. No pulse deficits. Respiratory: Respirations even and unlabored. No increased work of breathing, no retractions or nasal flaring. Abdomen/GI: Soft, non-tender. No distention Skin: Warm, dry with normal turgor. Normal color. MS/ Extremity: Pulses equal, no cyanosis. Neurovascular intact. Full, normal range of motion. Neuro: Awake and alert, GCS 15, oriented to person, place, time, and situation. Moves all extremities. Normal gait. Psych: Awake, alert, with orientation to person, place and time. Behavior, mood, and affect are within normal limits. Vital Signs: 13:50 BP 124 / 92; Pulse 96; Resp 17; Temp 98.4(O); Pulse Ox 100% on R/A; Weight 78.47 kg kg (M); Height 5 ft. 9 in. (175.26 cm); Pain 9/10; 15:32 BP 122 / 90; Pulse 90; Resp 18; Pulse Ox 100% on R/A; aj1 13:50 Body Mass Index 25.55 (78.47 kg, 175.26 cm) kg Elverson Coma Score: 20:17 Eye Response: spontaneous(4). Verbal Response: oriented(5). Motor Response: obeys kb commands(6). Total: 15. MDM: 14:29 Patient medically screened. kb 20:17 Data reviewed: vital signs, nurses notes. Data interpreted: Pulse oximetry: on room air kb is 100 %. Interpretation: normal. Counseling: I had a detailed discussion with the patient and/or guardian regarding: the historical points, exam findings, and any diagnostic results supporting the discharge/admit diagnosis, the need for outpatient follow up, a neurologist, to return to the emergency department if symptoms worsen or persist or if there are any questions or concerns that arise at home. 10/19 14:38 Order name: IV Start; Complete Time: 15:11 kb Administered Medications: 15:11 Drug: NS 0.9% 1000 ml Route: IV; Rate: 1000 ml; Site: right antecubital; aj1 16:53 Follow up: IV Status: Completed infusion; IV Intake: 1000ml aj1 15:11 Drug: Reglan (metoCLOPramide) 10 mg Route: IVP; Site: right antecubital; aj1 16:53 Follow up: Response: No adverse reaction aj1 15:12 Drug: TORadol (ketorolac) 30 mg Route: IVP; Site: right antecubital; aj1 16:53 Follow up: Response: No adverse reaction aj1 15:12 Drug: Benadryl (diphenhydrAMINE) 12.5 mg Route: IVP; Site: right antecubital; aj1 16:53 Follow up: Response: No adverse reaction aj1 Disposition: 10/19/20 16:11 Discharged to Home. Impression: Migraine. - Condition is Stable. - Discharge Instructions: Migraine Headache, [id number]. - Medication Reconciliation Form, Thank You Letter, Antibiotic Education, Prescription Opioid Use form. - Follow up: Emergency Department; When: As needed; Reason: Worsening of condition. Follow up: Private Physician; When: 2 - 3 days; Reason: Recheck today's complaints, Continuance of care, Re-evaluation by your physician. Addendum: 10/22/2020 11:08 Co-signature as Attending Physician, Jackson Marquez MD I agree with the assessment and k dr plan of care. Signatures: Karina Rowe, MRI CT TECH-C MRI CT TECH-Ckb Yuliya Enriquez RN RN aj1 Jackson Marquez MD MD [facility] Maryjane Hatfield RN RN kg Corrections: (The following items were deleted from the chart) 10/19 16:54 16:11 10/19/2020 16:11 Discharged to Home. Impression: Migraine. Condition is Stable. aj1 Forms are Medication Reconciliation Form, Thank You Letter, Antibiotic Education, Prescription Opioid Use. Follow up: Emergency Department; When: As needed; Reason: Worsening of condition. Follow up: Private Physician; When: 2 - 3 days; Reason: Recheck today's complaints, Continuance of care, Re-evaluation by your physician. kb
--- NOTE | 2020-10-19 16:12 | ER ---
Nurse's Notes [facility] Name: Alex Ferrer Age: 39 yrs Sex: Male : 1980 Arrival Date: 10/19/2020 Time: 13:44 Bed 27 Private MD: Diagnosis: Migraine Presentation: 10/19 13:50 Chief complaint: Patient states: Pt stated, "I've had a migraine headache since last kg 10/11. 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 ". Coronavirus screen: Client denies travel out of the [place] in the last 14 days. At this time, unable to obtain information related to travel outside the [place] At this time, the client does not indicate any symptoms associated with coronavirus-19. Ebola Screen: Patient negative for fever greater than or equal to 101.5 degrees Fahrenheit, and additional compatible Ebola Virus Disease symptoms Patient denies exposure to infectious person. Patient denies travel to an Ebola-affected area in the 21 days before illness onset. Initial Sepsis Screen: Does the patient meet any 2 criteria? No. Patient's initial sepsis screen is negative. Does the patient have a suspected source of infection? No. Patient's initial sepsis screen is negative. Risk Assessment: Do you want to hurt yourself or someone else? Patient reports no desire to harm self or others. Onset of symptoms was October 11, 2020. 13:50 Method Of Arrival: Ambulatory kg 13:50 Acuity: JULI 4 kg Triage Assessment: 13:55 Headache History: The patient has had previous headaches and this one is similar to kg previous episodes. General: Appears in no apparent distress. Behavior is calm, cooperative, appropriate for age, quiet. Pain: Pain currently is 9 out of 10 on a pain scale. at worst was 10 out of 10 on a pain scale. level that patient reports is acceptable is 4 out of 10 on a pain scale. Pain began October 11 Also complains of Auditory hallucination, visual hallucination, nausea. Historical: - Allergies: 13:55 No Known Allergies; kg - PMHx: 13:55 Migraines; Kidney stones; insomnia; Depression; kg - PSHx: 13:55 Right shoulder surgery; Middle finger right hand surgery; kg - Immunization history:: Adult Immunizations not up to date, Client reports having NOT received the Covid vaccine. - Social history:: Smoking status: Patient denies any tobacco usage or history of. Patient uses alcohol, occasionally. Screenin:30 Abuse screen: Denies threats or abuse. Denies injuries from another. Nutritional aj1 screening: No deficits noted. Tuberculosis screening: No symptoms or risk factors identified. 16:54 Fall Risk None identified. aj1 Assessment: 14:30 General: Appears in no apparent distress. uncomfortable, Behavior is calm, cooperative, aj1 appropriate for age. Pain: Complains of pain in face. Neuro: Level of Consciousness is awake, alert, obeys commands, Oriented to person, place, time, situation, [employer] are equal bilaterally Moves all extremities. Full function Gait is steady, Speech is normal, Facial symmetry appears normal, Reports headache. Cardiovascular: Patient's skin is warm and dry. Respiratory: Airway is patent Respiratory effort is even, unlabored, Respiratory pattern is regular, symmetrical. GI: No signs and/or symptoms were reported involving the gastrointestinal system. : No signs and/or symptoms were reported regarding the genitourinary system. EENT: No signs and/or symptoms were reported regarding the EENT system. Derm: No signs and/or symptoms reported regarding the dermatologic system. Skin is pink, warm \\T\\ dry. normal. Musculoskeletal: No signs and/or symptoms reported regarding the musculoskeletal system. Circulation, motion, and sensation intact. 15:32 Reassessment: Patient appears in no apparent distress at this time. No changes from aj1 previously documented assessment. Patient and/or family updated on plan of care and expected duration. Pain level reassessed. Patient is alert, oriented x 3, equal unlabored respirations, skin warm/dry/pink. 16:30 Reassessment: Patient appears in no apparent distress at this time. No changes from aj1 previously documented assessment. Patient and/or family updated on plan of care and expected duration. Pain level reassessed. Patient is alert, oriented x 3, equal unlabored respirations, skin warm/dry/pink. Vital Signs: 13:50 BP 124 / 92; Pulse 96; Resp 17; Temp 98.4(O); Pulse Ox 100% on R/A; Weight 78.47 kg kg (M); Height 5 ft. 9 in. (175.26 cm); Pain 9/10; 15:32 BP 122 / 90; Pulse 90; Resp 18; Pulse Ox 100% on R/A; aj1 13:50 Body Mass Index 25.55 (78.47 kg, 175.26 cm) kg Trosper Coma Score: 20:17 Eye Response: spontaneous(4). Verbal Response: oriented(5). Motor Response: obeys kb commands(6). Total: 15. ED Course: 13:44 Patient arrived in ED. am2 13:54 Triage completed. kg 14:08 [facility]C [facility] kb 14:08 Jackson Marquez MD is Attending Physician. kb 14:30 Patient has correct armband on for positive identification. Bed in low position. Call aj1 light in reach. Side rails up X 1. 14:30 No provider procedures requiring assistance completed. aj1 15:10 Inserted saline lock: 20 gauge in right antecubital area, using aseptic technique. aj1 15:11 Yuliya Enriquez, RN is Primary Nurse. aj1 16:51 IV discontinued, intact, bleeding controlled, No redness/swelling at site. Pressure aj1 dressing applied. Administered Medications: 15:11 Drug: NS 0.9% 1000 ml Route: IV; Rate: 1000 ml; Site: right antecubital; aj1 16:53 Follow up: IV Status: Completed infusion; IV Intake: 1000ml aj1 15:11 Drug: Reglan (metoCLOPramide) 10 mg Route: IVP; Site: right antecubital; aj1 16:53 Follow up: Response: No adverse reaction aj1 15:12 Drug: TORadol (ketorolac) 30 mg Route: IVP; Site: right antecubital; aj1 16:53 Follow up: Response: No adverse reaction aj1 15:12 Drug: Benadryl (diphenhydrAMINE) 12.5 mg Route: IVP; Site: right antecubital; aj1 16:53 Follow up: Response: No adverse reaction aj1 Intake: 16:53 IV: 1000ml; Total: 1000ml. aj1 Outcome: 16:11 Discharge ordered by . kb 16:52 Discharged to home ambulatory. aj1 16:52 Condition: good 16:52 Discharge instructions given to patient, Instructed on discharge instructions, follow up and referral plans. Demonstrated understanding of instructions, follow-up care. 16:54 Patient left the ED. aj1 Signatures: Karina Rowe FNP-C FNP-Yuliya aSnto RN RN aj1 Edyta Ponce am2 Maryjane Hatfield RN RN kg
[2020-10-19 18:09] VITALS: TEMP 98.4; O2SAT 100
[2020-10-19 18:10] VITALS: BP 122/90
== END 2020-10-19 16:54 | disposition home or self-care (01) ==
LOC: ER 13:43
DX: G43.909 Migraine, unspecified, not intractable, without status migrainosus (principal); G47.00 Insomnia, unspecified; F32.9 Major depressive disorder, single episode, unspecified
CPT/HCPCS: 96361; 96375; 96374; 99283; J2765; J1200; J7030

== ENCOUNTER 2021-01-02 11:54 | Emergency (ER) | payer BC ==
--- OUTSIDE RECORDS SUMMARY | 2021-01-02 11:57 | XMS REPORT | Continuity of Care Document ---
:1980 Author Organization [facility] t Address [address] [place] [address] Care Team Providers Name Role Phone Taye ESTRADA Primary Care Physician Agnes Danielle Attending Clinician David Hernandes Attending Clinician Problems Condition Condition Condition Status Onset Resolution Last Treating Co mments Source Name Details Category Date Date Treatment Clinician Date Pain Problem Resolve 2019-01-03 Jm brandin (finding) d 14:25:32 l Pain Carriere (finding) Resolved Problem 01/03/2019 constant pain in various areas [facility] Migraine Problem Active 2019-01-03 Mem oria (disorder) 14:25:32 l Migraine Hamzah n (disorder) Active Problem 01/03/2019 [facility] Paresthesi Problem Active 2019-01-03 M emoria a 14:25:32 l (finding) Orestes Paresthesi a (finding) Active Problem 01/03/2019 [facility] Tinnitus Problem Active 2019-01-03 Mem oria (finding) 14:25:32 l Tinnitus Hamzah n (finding) Active Problem 01/03/2019 [facility] Allergies, Adverse Reactions, Alerts This patient has no known allergies or adverse reactions. Social History Social Habit Start Date Stop Date Quantity Comments Source Social History 2017-12-11 2017-12-11 [facility] Alia hicks 20:17:51 20:17:51 Sex Ass[birth year] At [birth year] [facility] 00:00:00 00:00:00 Smoking Status Start Date Stop Date Source Unknown if ever smoked [facility] Medications Ordered Filled Start Stop Current Ordering Indication Dosage Frequency Signature Comments Components Source Medication Medication Date Date Medication? Clinician (SIG) Name Name eletriptan Yes 40 mg = 1 Me moria 40 MG Oral 2-05 tab, PO, l Tablet 21:05: PRN, PRN Carriere [Relpax] 00 migraine, # 6 tab, 1 Refill(s), Pharmacy: [facility] #[id number] frovatripta No 2.5 mg = 1 Memoria n 2.5 mg 2-05 tab, PO, l oral tablet 17:09: Daily, PRN O[place] 00 for migraine headache, may repeat x 2 with 2 hours between doses if needed, X 3 day, # 9 tab, 2 Refill(s), Pharmacy: [facility] #[id number] { Yes See Memoria (Methylpred 2-05 Instructio l nisolone 4 17:09: ns, PO, Herm vy MG Oral 00 Take by Tablet mouth as [Medrol]) } directed Pack on label., [Medrol # 1 Pack, Dosepak] 0 Refill(s), Pharmacy: [facility] #[id number] {2017-05 No See Memoria (Methylpred 2-07 Instructio l nisolone 4 22:17: ns, PO, Herm vy MG Oral 00 Take by Tablet mouth as [Medrol]) } directed Pack on label., [Medrol # 1 Pack, Dosepak] 0 Refill(s), Pharmacy: [facility] #[id number] 24 HR 2017-05 Yes 100 mg = 1 Memori a topiramate 2-07 cap, PO, l 100 MG 22:11: Daily, # [place] Extended 00 30 cap, 3 Release Refill(s), Capsule Pharmacy: [Yee] [facility] #[id number] Vital Signs Vital Name Observation Time Observation Value Comments Source Systolic (mm Hg) 2018-06-15 16:40:00 Jm Carlisle Diastolic (mm Hg) 2018-06-15 16:40:00 Mem orial [place] Heart Rate 2018-06-15 16:40:00 [facility] Height 2018-06-15 16:40:00 172.72 cm [facility]re Weight 2018-06-15 16:40:00 [facility] [place] BMI Calculated 2018-06-15 16:40:00 Memori al [place] BMI Calculated 2018-04-28 22:05:00 Memori al Carriere Weight 2018-04-28 22:05:00 [facility] [place] Height 2018-04-28 22:05:00 175.26 cm [facility] Heart Rate 2018-04-28 22:05:00 [facility] Systolic (mm Hg) 2018-04-28 22:05:00 Jm rial [place] Diastolic (mm Hg) 2018-04-28 22:05:00 Mem orial Carriere BMI Calculated 2018-04-16 21:35:00 Memori al [place] Weight 2018-04-16 21:35:00 [facility] Height 2018-04-16 21:35:00 175.26 cm [facility] [place] Heart Rate 2018-04-16 21:35:00 [facility] Systolic (mm Hg) 2018-04-16 21:35:00 Jm rial Carriere Diastolic (mm Hg) 2018-04-16 21:35:00 Mem orial Carriere Procedures This patient has no known procedures. Plan of Care Planned Activity Planned Date Details Comments Source Future Scheduled Test COVID-19 VACCINE (1) [facility] [code = COVID-19 VACCINE (1)] Future Scheduled Test INFLUENZA VACCINE [facility] [code = INFLUENZA VACCINE] Encounters Start End Encounter Admission Attending Care Care Encounter Source Date/Time Date/Time Type Type Clinicians Facility Department ID 2020-04-19 2020-04-19 Emergency [place], Rita [facility] [id number] 13:17:00 17:14:00 Agnes Moore [id number] [place] [id number] [place] [id number] 2018-07-13 2018-07-13 Outpatient DEE PRICE [id number] Memoria 15:45:00 15:45:00 04 l [place] 2018-06-15 2018-06-16 Outpatient nullFlavo MNA [id number] Memoria 16:45:00 05:59:59 r Neurology 05 l [place] Carriere 2018-06-15 2018-06-15 Outpatient FRIEDA Hernandes [id number] 10:45:00 23:59:59 Girma 05 David 2018-06-15 2018-06-15 Outpatient MHIE MHIE [id number] Memoria 10:45:00 10:45:00 05 leonor Carriere 2018-04-28 2018-04-29 Outpatient nullFlavo MNA [id number] Memoria 22:15:00 05:59:59 r Neurology 03 leonor Beckman [place] 2018-04-28 2018-04-28 Outpatient SPIKE HernandesSCHALFONZO MISCHER [id number] 16:15:00 23:59:59 Girma 03 David 2018-04-28 2018-04-28 Outpatient MHIE MHIE [id number] Memoria 16:15:00 16:15:00 03 leonor O[place] 2018-04-16 2018-04-17 Outpatient nullFlavo MNA [id number] Memoria 21:45:00 05:59:59 r Neurology 02 leonor Beckman [place] 2018-04-16 2018-04-16 [id number] 15:45:00 23:59:59 Girma 02 David 2018-04-16 2018-04-16 Outpatient MHIE MHIE [id number] Memoria 15:45:00 15:45:00 02 leonor Carl[place] 2018-01-15 2018-01-15 Outpatient MHIE MHIE [id number] Memoria 15:45:00 15:45:00 01 leonor O[place] 2017-12-11 2017-12-11 Outpatient MHIE MHIE [id number] Memoria 15:00:00 15:00:00 00 leonor Carlisle Results Test Description Test Time Test Comments [...]
--- NOTE | 2021-01-02 13:38 | RAD REPORT ---
EXAM DESCRIPTION: CT - Stone Protocol - 01/02/2021 1:27 pm CLINICAL HISTORY: Flank pain. FLANK PAIN COMPARISON: Stone Protocol dated 11/19/2018 TECHNIQUE: Axial images were obtained without oral or IV contrast. Lack of contrast limits solid org an and vascular assessment. The [id number] spans the entirety of the system partially obscuring uppermost abdomen and lung bases. Coronal reformatted images were obtained and reviewed. All CT scans are performed using dose optimization technique as appropriate and may include automated exposure control or mA/KV adjustment according to patient size. FINDINGS: The lower lung ospina are clear. Imaged portions of the liver and spleen show no suspicious findings on non-contrast imaging. The panc reas and adrenal glands are normal. No pathologic lymphadenopathy in the abdomen or pelvis. 2 mm stone is noted at the right UVJ with mild right hydronephrosis and hydroureter. No left-sided tract stone identified. No bowel obstruction, free air, free fluid or abscess. Normal appendix noted. No significant bony abnormality. IMPRESSION: 2 mm stone is seen at the right UVJ resulting in mild right hydronephrosis and hydrouret er.
[2021-01-02 14:45] LABS: Absolute Lymphocytes (CBC) 1.7 K/uL (0.7-4.9); Basophils % 0.6 % (0-1.3); Hematocrit 40.3 % (39.6-49.0); MPV 6.4 fL (7.6-11.3); RBC Red Blood Cell Count 4.57 M/uL (4.33-5.43)
[2021-01-02] MEDS ORDERED: ONDANSETRON 4 MG/2 ML VIAL ONE (14:48)
[2021-01-02] MEDS ORDERED: NA CHLORIDE 0.9% 1,000 ML ONE (14:49)
[2021-01-02] MEDS ORDERED: TAMSULOSIN 0.4 MG SR CAP ONE (14:49)
[2021-01-02] MEDS ORDERED: MAGNESIUM SULFATE 1 gm IVPB 1 GM/100 ML BAG IV ONE (14:49)
[2021-01-02] MEDS ORDERED: KETOROLAC 30 MG/ML INJ ONE (14:49)
[2021-01-02 14:54] LABS: Potassium 3.7 mmol/L (3.5-5.1)
[2021-01-02 15:45] LABS: Urine Blood 3+ (Negative); Urine Glucose Negative (Negative); Urine Protein Negative (Negative); Urine Specific Gravity <=1.005 (1.005-1.030); Urine pH 5.5 (5.0-7.0)
--- NOTE | 2021-01-02 15:53 | ER ---
Nurse's Notes [facility] Name: Alex Ferrer Age: 40 yrs Sex: Male : 1980 Arrival Date: 01/02/2021 Time: 11:54 Bed Treatment Private MD: Diagnosis: Calculus of ureter Presentation: 01/02 12:57 Chief complaint: Patient states: R flank pain pain that began this this morning. HX of ss kidney stones. Coronavirus screen: Client denies travel out of the [place] in the last 14 days. Ebola Screen: Patient denies exposure to infectious person. Patient denies travel to an Ebola-affected area in the 21 days before illness onset. Initial Sepsis Screen: Does the patient meet any 2 criteria? No. Patient's initial sepsis screen is negative. Does the patient have a suspected source of infection? No. Patient's initial sepsis screen is negative. Risk Assessment: Do you want to hurt yourself or someone else? Patient reports no desire to harm self or others. Onset of symptoms was January 02, 2021. 12:57 Method Of Arrival: Ambulatory ss 12:57 Acuity: JULI 2 ss Triage Assessment: 14:38 General: Appears in no apparent distress. Behavior is calm, cooperative, appropriate kg for age. Pain: Denies pain. GI: Reports lower abdominal pain. : Reports burning with urination, pain in suprapubic area flank(s), in lower back. Historical: - Allergies: 12:58 No Known Allergies; ss - Home Meds: 14:38 Fluoxetine Oral [Active]; Lunesta Oral [Active]; Relpax Oral [Active]; kg - PMHx: 12:58 Depression; insomnia; Kidney stones; Migraines; ss - PSHx: 14:38 None; kg - Immunization history:: Client reports having NOT received the Covid vaccine. - Social history:: Smoking status: Patient denies any tobacco usage or history of. Screenin:37 Abuse screen: Denies threats or abuse. Denies injuries from another. Nutritional kg screening: No deficits noted. Tuberculosis screening: No symptoms or risk factors identified. Fall Risk None identified. Assessment: 14:38 GI: Bowel sounds present X 4 quads. Abd is soft X 4 quads. kg Vital Signs: 12:57 Resp 16; Weight 79.38 kg; Height 5 ft. 10 in. (177.80 cm); Pain 10/10; ss 12:58 BP 152 / 99; Pulse 83; Temp 97.5(TE); Pulse Ox 100% on R/A; ss 16:15 BP 130 / 76; Pulse 91; Resp 20; Pulse Ox 99% on R/A; kg 12:57 Body Mass Index 25.11 (79.38 kg, 177.80 cm) ss ED Course: 11:54 Patient arrived in ED. as 12:58 Triage completed. ss 12:58 Arm band placed on left wrist. ss 13:25 Inserted saline lock: 20 gauge in right antecubital area, using aseptic technique. kg ,using aseptic technique. BY Marshall COLBY Blood collected. 13:27 CT Stone Protocol In Process Unspecified. EDMS 13:51 Karina Rowe FNP-C is PHCP. kb 13:51 Reji Adkins MD is Attending Physician. kb 14:21 Maryjane Hatfield, LASHA is Primary Nurse. kg 14:37 Patient has correct armband on for positive identification. kg 14:37 Basic Metabolic Panel Sent. kg 14:37 CBC with Diff Sent. kg 14:37 No provider procedures requiring assistance completed. kg 16:15 IV discontinued, intact, bleeding controlled, No redness/swelling at site. Pressure kg dressing applied. Administered Medications: 13:21 Drug: NS 0.9% 1000 ml Route: IV; Rate: 1000 ml; Site: right antecubital; kg 15:45 Follow up: Response: No adverse reaction; IV Status: Completed infusion; IV Intake: kg 1000ml 14:32 Drug: Zofran (Ondansetron) 4 mg Route: IVP; Site: right antecubital; kg 16:17 Follow up: Response: No adverse reaction; Marked relief of symptoms kg 14:36 Drug: Ketorolac 15 mg Route: IVP; Site: right antecubital; kg 16:17 Follow up: Response: No adverse reaction; Marked relief of symptoms kg 14:36 Drug: Magnesium Sulfate 1 grams Route: IVPB; Infused Over: 30 mins; Site: right kg antecubital; 15:45 Follow up: Response: No adverse reaction; IV Status: Completed infusion; IV Intake: kg 100ml 14:36 Drug: Flomax (tamsulosin) 0.4 mg Route: PO; kg 16:16 Follow up: Response: No adverse reaction; Marked relief of symptoms kg Intake: 15:45 IV: 100ml; Total: 100ml. kg 15:45 IV: 1000ml; Total: 1100ml. kg Outcome: 15:53 Discharge ordered by . juanjo 16:16 Discharged to home ambulatory. kg 16:16 Condition: improved 16:16 Discharge instructions given to patient, Instructed on discharge instructions, follow up and referral plans. Demonstrated understanding of instructions, follow-up care, medications, Prescriptions given X 3. 16:18 Patient left the ED. kg Signatures: Dispatcher [employer] EDMS Karina Rowe, ALISHA-C ALISHA-Dayana Ferro Shelby, RN RN Maryjane Hatfield RN RN kg
--- NOTE | 2021-01-02 15:53 | EDPHYS ---
Physician Documentation [facility] Name: Alex Ferrer Age: 40 yrs Sex: Male : 1980 Arrival Date: 01/02/2021 Time: 11:54 Bed Treatment Private MD: Reji Soto HPI: 01/02 16:15 This 40 yrs old Male presents to ER via Ambulatory with complaints of kb Possible Kidney Stone. 16:15 The patient complains of pain in the right flank. The pain does not radiate. Onset: The kb symptoms/episode began/occurred today. Modifying factors: The symptoms are alleviated by nothing. the symptoms are aggravated by nothing. Associated signs and symptoms: Pertinent positives: urinary frequency, difficulty urinating, Pertinent negatives:. Severity of pain: At its worst the pain was moderate in the emergency department the pain is unchanged. The patient has experienced similar episodes in the past, a few times. The patient has not recently seen a physician. Historical: - Allergies: 12:58 No Known Allergies; ss - Home Meds: 14:38 Fluoxetine Oral [Active]; Lunesta Oral [Active]; Relpax Oral [Active]; kg - PMHx: 12:58 Depression; insomnia; Kidney stones; Migraines; ss - PSHx: 14:38 None; kg - Immunization history:: Client reports having NOT received the Covid vaccine. - Social history:: Smoking status: Patient denies any tobacco usage or history of. ROS: 15:03 Constitutional: Negative for fever, chills, and weight loss. kb 15:03 : Positive for flank pain, urinary frequency, small amounts, difficulty urinating. 15:03 All other systems are negative. Exam: 16:15 Constitutional: This is a well developed, well nourished patient who is awake, alert, kb and in no acute distress. Head/Face: Normocephalic, atraumatic. ENT: Moist Mucous membranes Respiratory: Respirations even and unlabored. No increased work of breathing, no retractions or nasal flaring. Abdomen/GI: Soft, non-tender. No distention Skin: Warm, dry with normal turgor. Normal color. MS/ Extremity: Pulses equal, no cyanosis. Neurovascular intact. Full, normal range of motion. Neuro: Awake and alert, GCS 15, oriented to person, place, time, and situation. Moves all extremities. Normal gait. Psych: Awake, alert, with orientation to person, place and time. Behavior, mood, and affect are within normal limits. 16:15 Back: CVA tenderness, that is moderate, is noted on the right. Vital Signs: 12:57 Resp 16; Weight 79.38 kg; Height 5 ft. 10 in. (177.80 cm); Pain 10/10; ss 12:58 BP 152 / 99; Pulse 83; Temp 97.5(TE); Pulse Ox 100% on R/A; ss 16:15 BP 130 / 76; Pulse 91; Resp 20; Pulse Ox 99% on R/A; kg 12:57 Body Mass Index 25.11 (79.38 kg, 177.80 cm) ss MDM: 14:13 Patient medically screened. kb 15:00 Data reviewed: vital signs, nurses notes. Data interpreted: Pulse oximetry: on room air kb is 100 %. Interpretation: normal. Counseling: I had a detailed discussion with the patient and/or guardian regarding: the historical points, exam findings, and any diagnostic results supporting the discharge/admit diagnosis, lab results, radiology results, the need for outpatient follow up, a urologist, to return to the emergency department if symptoms worsen or persist or if there are any questions or concerns that arise at home. 01/02 14:00 Order name: CBC with Diff; Complete Time: 14:55 kb 01/02 14:00 Order name: Basic Metabolic Panel; Complete Time: 14:54 kb 01/02 12:59 Order name: CT Stone Protocol; Complete Time: 13:51 kb 01/02 14:55 Order name: Urine Microscopic Only kb 01/02 15:45 Order name: Urine Dipstick-Ancillary; Complete Time: 15:52 EDMS 01/02 14:00 Order name: IV Start; Complete Time: 14:37 kb 01/02 14:55 Order name: Urine Dipstick-Ancillary (obtain specimen); Complete Time: 15:49 kb Administered Medications: 13:21 Drug: NS 0.9% 1000 ml Route: IV; Rate: 1000 ml; Site: right antecubital; kg 15:45 Follow up: Response: No adverse reaction; IV Status: Completed infusion; IV Intake: kg 1000ml 14:32 Drug: Zofran (Ondansetron) 4 mg Route: IVP; Site: right antecubital; kg 16:17 Follow up: Response: No adverse reaction; Marked relief of symptoms kg 14:36 Drug: Ketorolac 15 mg Route: IVP; Site: right antecubital; kg 16:17 Follow up: Response: No adverse reaction; Marked relief of symptoms kg 14:36 Drug: Magnesium Sulfate 1 grams Route: IVPB; Infused Over: 30 mins; Site: right kg antecubital; 15:45 Follow up: Response: No adverse reaction; IV Status: Completed infusion; IV Intake: kg 100ml 14:36 Drug: Flomax (tamsulosin) 0.4 mg Route: PO; kg 16:16 Follow up: Response: No adverse reaction; Marked relief of symptoms kg Disposition: 01/03 14:49 Co-signature as Attending Physician, Reji Adkins MD I agree with the assessment and sandeep plan of care. Disposition Summary: 01/02/21 15:53 Discharge Ordered Location: Home kb Condition: Stable kb Diagnosis - Calculus of ureter kb Followup: kb - With: Emergency Department - When: As needed - Reason: Worsening of condition Followup: kb - With: Private Physician - When: 2 - 3 days - Reason: Recheck today's complaints, Continuance of care, Re-evaluation by your physician Discharge Instructions: - Discharge Summary Sheet kb - Kidney Stones, [id number] kb - Dietary Guidelines to Help Prevent Kidney Stones kb Forms: - Medication Reconciliation Form kb - Thank You Letter kb - Antibiotic Education kb - Prescription Opioid Use kb Prescriptions: - Flomax 0.4 mg Oral capsule - take 1 capsule by ORAL route once daily for 10 days 1/2 hour following the same kb meal each day; 10 capsule; Refills: 0, Product Selection Permitted - Zofran 4 mg Oral Tablet - take 1 tablet by ORAL route every 6 hours As needed; 20 tablet; Refills: 0, Product Selection Permitted - Diclofenac Sodium 75 mg Oral tablet,delayed release (DR/EC) - take 1 tablet by ORAL route 2 times per day As needed; 30 tablet; Refills: 0, kb Product Selection Permitted Signatures: Dispatcher [employer] Karina Arias, MEGHA BRITO-Reji Ayoub MD MD cha Smirch, Shelby RN RN ss Liu, Maryjane, RN RN kg
[2021-01-02 16:26] VITALS: TEMP 97.5
[2021-01-02 16:27] VITALS: BP 130/76; O2SAT 99
[2021-01-02 16:46] LABS: Urine Bacteria <20 /HPF (NONE SEEN); Urine RBC <5 /HPF (NONE SEEN)
== END 2021-01-02 16:18 | disposition home or self-care (01) ==
LOC: ER 11:54
DX: N20.1 Calculus of ureter (principal); F32.9 Major depressive disorder, single episode, unspecified; Z87.442 Personal history of urinary calculi
CPT/HCPCS: 96365; 96361; 85025; 80048; 36415; 76377; 74176; 96375; 99284; J3475; J7030; J2405; 81003; 81015

== ENCOUNTER 2024-05-30 18:20 | Emergency (ER) | payer OTHER ==
[2024-05-30] MEDS ORDERED: KETOROLAC 30 MG/ML INJ ONE (18:38)
[2024-05-30] MEDS ORDERED: MORPHINE 4 MG/ML SYR ONE (18:38)
[2024-05-30] MEDS ORDERED: ONDANSETRON 4 MG/2 ML VIAL ONE (18:38)
[2024-05-30 18:57] LABS: Absolute Basophils 0.1 K/uL (0-0.5); Absolute Eosinophils 0.1 K/uL (0-0.5); Absolute Lymphocytes (CBC) 2.1 K/uL (0.7-4.9); Absolute Monocytes 0.4 K/uL (0.1-1.3); Absolute Neutrophil 10.9 K/uL (1.8-8.0); Basophils % 1.1 % (0-1.3); Eosinophils % 0.7 % (0-4.4); Hematocrit 42.3 % (39.6-49.0); Hemoglobin 14.5 g/dL (13.6-17.9); Lymphocytes % 15.7 % (15.3-44.8); MCHC 34.2 g/dL (32.0-36.0); MCV 87.8 fL (80-100); MPV 6.5 fL (7.6-11.3); Neutrophils % 79.5 % (41.7-73.7); Platelets 361 thou/uL (152-406); RBC Red Blood Cell Count 4.82 M/uL (4.33-5.43)
[2024-05-30 19:01] LABS: Specific Gravity 1.007 (1.005-1.030); Sqamous Epithelial <5 /HPF (None Seen); Urine Bacteria None Seen /HPF (<20); Urine Bilirubin NEGATIVE (Negative); Urine Blood 2+ (Negative); Urine Clarity Turbid (Clear); Urine Color Colorless (Yellow); Urine Crystals Unidentified Few /HPF (None Seen); Urine Culture Reflex Order NOT NEEDED; Urine Glucose NEGATIVE (Negative); Urine Ketones NEGATIVE (Negative); Urine Microscopic Reflex YN ORDER UMIC; Urine Mucus Slight /HPF (None Seen); Urine Nitrite NEGATIVE (Negative); Urine Protein NEGATIVE (Negative); Urine Urobilinogen Normal (Normal); Urine WBC <5 /HPF (<5)
[2024-05-30 19:14] LABS: Albumin 3.8 g/dL (3.4-5.0); Albumin/Globulin Ratio 1.1 (1.1-1.8); Anion Gap 11.1 mEq/L (5.0-15.0); Bilirubin Total 0.4 mg/dL (0.2-1.0); Globulin 3.5 g/dL (2.3-3.5); Potassium 3.1 mEq/L (3.5-5.1); Protein, Total 7.3 g/dL (6.4-8.2)
--- NOTE | 2024-05-30 19:23 | RAD REPORT ---
EXAMINATION: CT stone protocol CT WITHOUT CONTRAST CLINICAL INDICATION: Male, 43 years old.FLANK PAIN TECHNIQUE: CT abdomen and pelvis was performed, without IV contrast, as per department protocol. Axia l, sagittal and coronal reconstructions were obtained. One or more of the following dose reduction techniques were used: Automated exposure control, adjustment of the mA and/or kV according to the pat ient size, and/or iterative reconstruction. Unless otherwise specified, incidental findings do not require dedicated imaging follow-up. [id number]. IV CONTRAST: Not administered. COMPARISON: 01/02/2021 FINDINGS: The lack of intravenous contrast limits the sensitivity of this exam for evaluation of solid visceral organs, vascular structures, and retroperitoneum. LOWER CHEST: Linear scarring at the right lung base.No significant pericardial effusion. Mild circumf erential thickening of the distal esophagus which could reflect esophagitis. UPPER GI: No significant abnormality. LIVER: Hepatic steatosis, but otherwise unremarkable. GALLBLADDER/BILE DUCTS: No biliary ductal dilatation.? PANCREAS: No mass, ductal dilation, or vince-pancreatic fluid. SPLEEN: Unremarkable. ADRENALS: No adrenal masses. KIDNEYS AND URETERS: Mild right-sided hydroureteronephrosis secondary to a 3 mm stone in the right pr oximal ureter.Within the limitations of a noncontrast CT, no suspicious renal lesions. ABDOMINAL AORTA AND OTHER VESSELS: Normal caliber aorta and IVC. PERITONEUM: No abnormal free fluid. No free air. LYMPH NODES: No pathologic lymphadenopathy. ABDOMINAL WALL: Fat-containing right inguinal hernia. SMALL BOWEL/COLON: Small bowel has normal course and caliber. No colonic wall thickening or pericolon ic inflammatory changes.Normal appendix. Mild diverticulosis without diverticulitis. URINARY BLADDER: Circumferential thickening which may be secondary to chronic bladder outlet obstruct ion. REPRODUCTIVE ORGANS: No pathologic process. MUSCULOSKELETAL: Multilevel degenerative changes in the spine. No acute fracture. ADDITIONAL FINDINGS: None. IMPRESSION: Mild right-sided hydronephrosis secondary to a 3 mm stone in the right proximal ureter.
--- NOTE | 2024-05-30 19:25 | ER ---
Nurse's Notes [facility] Name: Alex Ferrer Age: 43 yrs Sex: Male : 1980 Arrival Date: 05/30/2024 Time: 18:20 Bed 19 Private MD: Diagnosis: Calculus of kidney with calculus of ureter Presentation: 05/30 18:33 Chief complaint: Patient states: Right sided flank pain that radiates to RLQ onset a cm10 few hours ago. Pt reports nausea and difficulty urinating. Coronavirus screen: Client denies travel out of the [place] in the last 14 days. Ebola Screen: Patient denies travel to an Ebola-affected area in the 21 days before illness onset. Initial Sepsis Screen: Does the patient meet any 2 criteria? No. Patient's initial sepsis screen is negative. Does the patient have a suspected source of infection? No. Patient's initial sepsis screen is negative. Risk Assessment: Do you want to hurt yourself or someone else? Patient reports no desire to harm self or others. Onset of symptoms was May 30, 2024. 18:33 Method Of Arrival: Ambulatory cm10 18:33 Acuity: JULI 3 cm10 Triage Assessment: 18:35 General: Appears uncomfortable, Behavior is calm, cooperative. Pain: Complains of pain cm10 in right flank Pain radiates to right lower quadrant Pain currently is 7 out of 10 on a pain scale. Neuro: No deficits noted. Level of Consciousness is awake, alert, obeys commands, Oriented to person, place, time, situation, Appropriate for age. Respiratory: No deficits noted. Airway is patent Respiratory effort is even, unlabored, Respiratory pattern is regular, symmetrical. : Reports pain in right flank(s), lower quadrant(s). Historical: - Allergies: 18:35 No Known Allergies; cm10 - PMHx: 18:35 Depression; insomnia; Kidney stones; Migraines; cm10 - Immunization history:: Adult Immunizations up to date. - Infectious Disease History:: Denies. - Social history:: Smoking status: Patient reports the use of cigarette tobacco products, denies chronic smoking, but will smoke occasionally, cigars. Screenin:54 [facility] ED Fall Risk Assessment (Adult) History of falling in the last 3 months, kc6 including since admission No falls in past 3 months (0 pts) Confusion or Disorientation No (0 pts) Intoxicated or Sedated No (0 pts) Impaired Gait No (0 pts) Mobility Assist Device Used No (0 pt) Altered Elimination No (0 pt) Score/Fall Risk Level 0 - 2 = Low Risk Oriented to surroundings, Maintained a safe environment, Educated pt \T\ family on fall prevention, incl call for assistance when getting out of bed. Abuse screen: Denies threats or abuse. Denies injuries from another. Nutritional screening: No deficits noted. Tuberculosis screening: No symptoms or risk factors identified. Assessment: 18:54 General: Appears in no apparent distress. uncomfortable, well groomed, well developed, kc6 Behavior is calm, cooperative, appropriate for age. Pain: Complains of pain in right lower quadrant and right flank. Neuro: Level of Consciousness is awake, alert, obeys commands, Oriented to person, place, time, situation, Appropriate for age. Cardiovascular: Capillary refill < 3 seconds. Respiratory: Airway is patent Trachea midline Respiratory effort is even, unlabored, Respiratory pattern is regular, symmetrical. GI: No signs and/or symptoms were reported involving the gastrointestinal system. Abdomen is round non-distended, Bowel sounds present X 4 quads. Abd is soft and non tender X 4 quads. 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 EENT: No signs and/or symptoms were reported regarding the EENT system. Derm: No signs and/or symptoms reported regarding the dermatologic system. Skin is intact, is healthy with good turgor, Skin is pink, warm \T\ dry. Musculoskeletal: No signs and/or symptoms reported regarding the musculoskeletal system. Circulation, motion, and sensation intact. Range of motion: intact in all extremities. 19:05 General: Appears in no apparent distress. comfortable. rg5 19:05 Pain: Denies pain. Neuro: Level of Consciousness is awake, alert, Oriented to person, rg5 place, time. Cardiovascular: Patient's skin is warm and dry. Respiratory: Airway is patent Trachea midline Respiratory effort is even, unlabored, Respiratory pattern is regular, symmetrical. GI: Abdomen is round non-distended, Reports lower abdominal pain, upper abdominal pain. Vital Signs: 18:33 BP 173 / 108; Pulse 83; Resp 15; Temp 97.7(O); Pulse Ox 99% on R/A; Weight 74.84 kg; cm10 Height 5 ft. 10 in. ; Pain 7/10; 19:30 BP 160 / 95; Pulse 89; Resp 18; Temp 98; Pulse Ox 97% on R/A; Pain 3/10; rg5 18:33 Body Mass Index 23.67 (74.84 kg, 177.8 cm) cm10 18:33 Pain Scale: Adult cm10 19:30 Pain Scale: Adult rg5 ED Course: 18:22 Patient arrived in ED. mr 18:24 Jeovanny Alcala MD is Attending Physician. ec2 18:35 Triage completed. cm10 18:36 Salud Frausto, LASHA is Primary Nurse. kc6 18:36 Arm band placed on right wrist. Patient placed in an exam room, on a stretcher, on cm10 pulse oximetry. 18:53 Initial lab(s) drawn, by me, sent to lab. Urine collected: clean catch specimen, kc6 cloudy. Inserted saline lock: 20 gauge in left antecubital area, using aseptic technique. Blood collected. Flushed with 10 mL NS. Patient maintains SpO2 saturation greater than 95% on room air. 18:[address] via wheelchair. kc6 18:54 Patient has correct armband on for positive identification. Bed in low position. Call kc6 light in reach. Side rails up X 1. Pulse ox on. NIBP on. Door closed. Noise minimized. Lights dimmed. Pillow given. 19:06 Stone Protocol In Process Unspecified. EDMS 19:25 Julio Bean MD is Referral Physician. ec2 19:57 No provider procedures requiring assistance completed. IV discontinued, bleeding rg5 controlled, No redness/swelling at site. Pressure dressing applied. 19:58 Provided Education on: post er care done. rg5 Administered Medications: 18:53 Drug: TORadol - Ketorolac IVP 15 mg IVP once Route: IVP; Site: left antecubital; kc6 19:41 Follow up: Response: No adverse reaction; Pain is decreased rg5 18:53 Drug: Ondansetron IVP 4 mg IVP once; over 2 minutes Route: IVP; Site: left antecubital; kc6 19:41 Follow up: Response: No adverse reaction rg5 18:53 Drug: morphine IVP or IV 4 mg IVP once over 4 mins Route: IVP; Infused Over: 4 mins; kc6 Site: left antecubital; 19:40 Follow up: Response: No adverse reaction rg5 19:40 Drug: HYDROcodone-acetaminophen PO 5 mg-325 mg 2 tabs PO once Route: PO; rg5 19:56 Follow up: Response: No adverse reaction; Pain is decreased rg5 Medication: 19:58 VIS not applicable for this client. rg5 Outcome: 19:25 Discharge ordered by . ec2 19:57 Discharged to home ambulatory, rg5 19:57 Condition: stable 19:57 Discharge instructions given to patient, Instructed on discharge instructions, follow up and referral plans. Demonstrated understanding of instructions, follow-up care, medications, Prescriptions given X 2, 19:59 Patient left the ED. rg5 Signatures: Dispatcher [employer] EDLA Eva Snyder, Reg Reg mr Salud Frausto RN RN kc6 Marcia Umanzor RN RN cm10 Jeovanny Alcala MD MD ec2 Enrico De Jesus RN RN rg5 Corrections: (The following items were deleted from the chart) 18:36 18:35 Allergies: Aspirin; cm10 cm10
--- NOTE | 2024-05-30 19:25 | EDPHYS ---
Physician Documentation [facility] Name: Alex Ferrer Age: 43 yrs Sex: Male : 1980 Arrival Date: 05/30/2024 Time: 18:20 Bed 19 Private MD: ED Physician Jeovanny Alcala HPI: 05/30 18:44 This 43 yrs old Male presents to ER via Ambulatory with complaints of ec2 Possible Kidney Stone. 18:44 Patient arrives today for evaluation of right-sided flank pain. Patient reports that he ec2 has been having right-sided flank pain for the past several hours. No specific alleviating or exacerbating factors. Reports a history of kidney stones and states she was similar. Reports no hematuria. Reports abdominal pain as well. Some nausea. No vomiting.. Historical: - Allergies: 18:35 No Known Allergies; cm10 - PMHx: 18:35 Depression; insomnia; Kidney stones; Migraines; cm10 - Immunization history:: Adult Immunizations up to date. - Infectious Disease History:: Denies. - Social history:: Smoking status: Patient reports the use of cigarette tobacco products, denies chronic smoking, but will smoke occasionally, cigars. ROS: 18:44 Constitutional: as per hpi ec2 Exam: 18:44 Constitutional: GEN: NAD Head: atraumatic Eyes: EOMI Ears: External ears are ec2 normal. CV: regular rate LUNGS: no respiratory distress ABD: non-distended, soft, right sided abdominal TTP, right CVA TTP. SKIN: no evidence of rashes MSK: no evidence of trauma Vital Signs: 18:33 BP 173 / 108; Pulse 83; Resp 15; Temp 97.7(O); Pulse Ox 99% on R/A; Weight 74.84 kg; cm10 Height 5 ft. 10 in. ; Pain 7/10; 19:30 BP 160 / 95; Pulse 89; Resp 18; Temp 98; Pulse Ox 97% on R/A; Pain 3/10; rg5 18:33 Body Mass Index 23.67 (74.84 kg, 177.8 cm) cm10 18:33 Pain Scale: Adult cm10 19:30 Pain Scale: Adult rg5 MDM: 18:36 Medical Screening Exam initiated ec2 18:44 Data reviewed: vital signs, nurses notes. ED course: Patient arrives today for ec2 right-sided abdominal pain and flank pain. Examination yields abdominal findings as above. Will obtain lab work, urine studies, CT imaging. Differential includes processes such as appendicitis, diverticulitis, ureteral stone, pyelonephritis.. 19:06 ED course: Urine noninfectious appearing. ec2 19:24 ED course: My CT imaging interpretation, right-sided ureteral stone had approximately 4 ec2 cm in size, defer to radiology on official report. Will discharge home. Return precautions given.. 05/30 18:36 Order name: CBC with Diff; Complete Time: 19:06 ec2 05/30 18:36 Order name: CMP; Complete Time: 19:19 ec2 05/30 18:36 Order name: Lipase; Complete Time: 19:19 ec2 05/30 18:36 Order name: Urinalysis w/ reflexes; Complete Time: 19:06 ec2 05/30 18:42 Order name: Stone Protocol; Complete Time: 19:24 EDMS 05/30 18:36 Order name: IV Saline Lock; Complete Time: 18:53 ec2 05/30 18:36 Order name: Labs collected and sent; Complete Time: 18:53 ec2 Administered Medications: 18:53 Drug: TORadol - Ketorolac IVP 15 mg IVP once Route: IVP; Site: left antecubital; kc6 19:41 Follow up: Response: No adverse reaction; Pain is decreased rg5 18:53 Drug: Ondansetron IVP 4 mg IVP once; over 2 minutes Route: IVP; Site: left antecubital; kc6 19:41 Follow up: Response: No adverse reaction rg5 18:53 Drug: morphine IVP or IV 4 mg IVP once over 4 mins Route: IVP; Infused Over: 4 mins; kc6 Site: left antecubital; 19:40 Follow up: Response: No adverse reaction rg5 19:40 Drug: HYDROcodone-acetaminophen PO 5 mg-325 mg 2 tabs PO once Route: PO; rg5 19:56 Follow up: Response: No adverse reaction; Pain is decreased rg5 Disposition Summary: 05/30/24 19:25 Discharge Ordered Notes: Location: Home ec2 Condition: Stable ec2 Diagnosis - Calculus of kidney with calculus of ureter ec2 Followup: ec2 - With: Julio Bean MD - When: - Reason: Recheck today's complaints Discharge Instructions: - Discharge Summary Sheet ec2 - Kidney Stones, [id number] ec2 Forms: - Medication Reconciliation Form ec2 - Antibiotic Education ec2 - Prescription Opioid Use ec2 - Patient Portal Instructions ec2 - Leadership Thank You Letter ec2 Prescriptions: - acetaminophen-codeine 300-30 mg Oral tablet - take 1 tablet ORAL route every 4 to 6 hours as needed for pain; 15 tablet; ec2 Refills: 0, Product Selection Permitted - tamsulosin 0.4 mg Oral capsule - take 1 capsule ORAL route every 24 hours; 14 capsule; Refills: 0, Product ec2 Selection Permitted Signatures: Dispatcher [employer] Salud Oscar RN RN kc6 Marcia Umanzor RN RN cm10 Jeovanny Alcala MD MD ec2 Enrico De Jesus RN RN rg5 Corrections: (The following items were deleted from the chart) 18:36 18:36 CBC+H.LAB.BRZ ordered. EDMS EDMS 18:36 18:36 COMPREHENSIVE METABOLIC PANEL+C.LAB.BRZ ordered. EDMS EDMS 18:36 18:36 LIPASE+C.LAB.BRZ ordered. EDMS EDMS 18:36 18:36 Urinalysis+U.LAB.BRZ ordered. EDMS EDMS 18:36 18:36 Abdomen Pelvis Wo Con+CT.RAD.BRZ ordered. EDMS EDMS 18:36 18:35 Allergies: Aspirin; cm10 cm10
[2024-05-30] MEDS ORDERED: HYDROCODONE/APAP 5/325 MG TAB ONE (19:49)
[2024-05-30 22:08] VITALS: BP 160/95; TEMP 98; O2SAT 97
== END 2024-05-30 19:59 | disposition home or self-care (01) ==
LOC: ER 18:20
DX: N20.2 Calculus of kidney with calculus of ureter (principal); Z87.442 Personal history of urinary calculi; F17.290 Nicotine dependence, other tobacco product, uncomplicated
CPT/HCPCS: 85025; 81001; 36415; 83690; 80053; 76377; 74176; 96375; 96374; 99285; J2405